=== PATIENT | male | born 1985 | race African-American/Black ===

== ENCOUNTER 2021-08-02 10:03 | Emergency (ER) | payer SELFPAY ==
--- OUTSIDE RECORDS SUMMARY | 2021-08-02 10:09 | XMS REPORT | Continuity of Care Document ---
:1985 Author Organization [facility] t Address [address] [place] [address] Care Team Providers Name Role Phone NGHIA Primary Care Physician Unavailable DR URIEL Attending Clinician Unavailable EMMETT Attending Clinician Unavailable Gill Davalos APN Attending Clinician Claudia Rosas MD Attending Clinician Claudia ROSAS Attending Clinician Unavailable NGHIA Attending Clinician Unavailable Gill Thomas Attending Clinician Unavailable BECKY GILLESPIE Attending Clinician Unavailable Jessika Attending Clinician Unavailable DR Dona BHAKTA Attending Clinician Unavailable Physician, Primary or Family Admitting Clinician Unavailharshad TREVINO DR Admitting Clinician Unavailable NGHIA Admitting Clinician Unavailable Jessika Admitting Clinician Unavailable DR Dona BHAKTA Admitting Clinician Unavailable Payers Payer Name Policy Type Policy Number Effective Date Expiration Date S ource BCBS OS [id number] 2018 POS/PPO/EPO 00:00:00 [place] [id number] 2018 HEALTHCARE PPO 00:00:00 26 C NONE [place] [id number] 2018 [place]PPO[place] 00:[place]:00 [place] [facility] Problems Condition Condition Condition Status Onset Resolution Last Treating Co mments Source Name Details Category Date Date Treatment Clinician Date Problem Condition [facility] Crohn's Problem Active [place] [facility] Ab[facility] Problem Active [place] [facility] Allergies, Adverse Reactions, Alerts Allergy Allergy Status Severity Reaction(s) Onset Inactive Treating Comm ents Source Name Type Date Date Clinician No Known NA Active 2020-0 [place] All[facility]ie 01-11 lle s 09:18: Memoria 47 l No Known NA Active 2020- [place] Allergie 01-05 lle s 05:55: Memoria 06 l No Known NA Active 2020- [place] Allergie 01-05 lle s 05:54: Memoria 57 l No Known NA Active 2020-0 [place] Allergie 01-05 lle s 03:14: Memoria 38 l No Known NA Active 2020-0 [place] Allergie 01-04 lle s 23:28: Memoria 54 l No Known DA Active U 2020-0 [facility] [place] 00:[facility] 00 [facility] No Known DA Active U 2020-0 [facility]- [place] 00:[facility]: [facility] 00 [facility] No Known DA Active U 2019-0 [facility]- [place] [facility] No Known DA Active U 2019-0 [facility] [place] [facility] No Known DA Active U 2018-0 [facility] [place] [facility] No Known DA Active U 2018-0 [facility] 9 [place] [facility] NO KNOWN Allergy Active [facility] ALLERGIE S NO KNOWN Drug Active Univers ALLERGIE Class [facility] [place] [facility] [place] Social History Social Habit Start Date Stop Date Quantity Comments Source Exposure to Not sure [facility] SARS-CoV-2 (event) Medica l Branch Sex Assigned At [birth year] Male [facility] 00:00:00 00:00:00 Health Smoking Status Start Date Stop Date Source Unknown if ever smoked [facility] Medications Ordered Filled Start Stop Current Ordering Indication Dosage Frequency Signature Comments Components Source Medication Medication Date Date Medication? Clinician (SIG) Name Name HYDROcodone 2020- No 1{tbl} 1 tablet, Univers -acetaminop 02-13 Oral, ity of hen (NORCO 08:15: 07:24 ONCE, 1 [place] as 5) 5-325 mg 00 :00 dose, On Medi digna tablet 1 Wed Branch tablet 02/13/21 at 0315, VIDAL iopamidol No [id number] 100mL 100 mL, Univers (ISOVUE 02-13 Intravenou ity o f 370-500 mL) 06:20: 06:20 s, ONCE, 1 [place] injection 00 :00 dose, On Medica l 100 mL Wed Branch 02/13/21 at 0130, Routine traMADoL 50 Yes [id number] 50mg Take 1 Univ ers mg tablet 02-13 tablet by ity o f 00:00: mouth [place] 00 every 6 Medical (six) Branch hours as needed for Pain (scale 4-6). Indication s: acute pain dicyclomine Yes [id number] 20mg Take 1 Univers 20 mg 02-13 tablet by ity of tablet 00:00: mouth 3 [place] 00 (three) Medical times Branch daily as needed for Abdominal pain. dicyclomine 2020- No 20mg 20 mg, Uni vers (BENTYL) 02-11 Oral, ity of tablet 20 07:15: 06:19 ONCE, 1 [place] mg 00 :00 dose, On Medical Mon Branch 02/11/21 at 0215, Routine HYDROcodone 2020- No 1{tbl} 1 tablet, Univers -acetaminop 02-11 Oral, ity of hen (NORCO 07:15: 06:19 ONCE, 1 [place] as 5) 5-325 mg 00 :00 dose, On Medi digna tablet 1 Mon Branch tablet 02/11/21 at 0215, VIDAL ondansetron 2020- No 4mg 4 mg, Slow Univers (ZOFRAN 02-11 IV Push, ity of (PF)) 03:15: 02:37 ONCE, 1 [place] injection 4 00 :00 dose, On Medi digna mg [place] Branch 02/10/21 at 2215, VIDAL FENTanyl PF 0 Yes 50ug 50 mcg, Uni vers (SUBLIMAZE - Slow IV ity of (PF)) 02:10: Push, [place] injection 55 Q30MIN Medical 50 mcg PRN, 3 Branch doses, Starting on 02/10/21 at 2110, Until Discontinu ed, VIDAL, Pain (scale 7-10) dicyclomine Yes [id number] 10mg Take 1 Univers 10 mg 9- 9108 capsule by ity of capsule 00:00: mouth 4 [place] 00 (four) Medical times Branch daily as needed for Abdominal pain. dicyclomine Yes [id number] 10mg Take 1 Univers 10 mg 9- 9108 capsule by ity of capsule 00:00: mouth 4 [place] 00 (four) Medical times Branch daily as needed for Abdominal pain. dicyclomine Yes [id number] 10mg Take 1 Univers 10 mg 9-27 9108 capsule by ity of capsule 00:00: mouth 4 [place] 00 (four) Medical times Branch daily as needed for Abdominal pain. Mesalamine Mesalamine 2019-0 Yes 1000 FOUR TIMES [place] (PENTASA (PENTASA 3-20 A DAY lle 500 MG CAP) 500 MG CAP) 11:08: (0900) Memoria 500 MG CAP 500 MG CAP 00 l Hospita l PREDNISONE PREDNISONE 0 Yes 40 EVERY DAY [place] (PREDNISONE (PREDNISONE 3-20 @ 0900 lle 10 MG TAB) 10 MG TAB) 11:08: M emoria 10 MG TAB 10 MG TAB 00 l Hospita l Vital Signs Vital Name Observation Time Observation Value Comments Source HEIGHT 2021-03-06 13:20:00 175.3 cm WEIGHT 2021-03-06 13:20:00 74.571 kg Systolic blood 2021-02-13 07:40:00 130 mm[Hg] Univer sity of pressure [facility] Diastolic blood 2021-02-13 07:40:00 89 mm[Hg] Unive rsity of pressure [place] [facility] Heart rate 2021-02-13 07:40:00 89 /min [facility] [place] [facility] Respiratory rate 2021-02-13 07:40:00 18 /min Univ ersity [facility] [place] [facility] Oxygen saturation in 2021-02-13 07:40:00 99 /min University of Arterial blood by [facility] digna Pulse oximetry Branch Body temperature 2021-02-13 03:40:00 36.61 Rain Univ ersity [facility] [place] [facility] Systolic blood 2021-02-11 11:14:00 128 mm[Hg] Univer sity of pressure [place] [facility] Diastolic blood 2021-02-11 11:14:00 74 mm[Hg] Unive rsity of pressure [place] [facility] Heart rate 2021-02-11 11:14:00 88 /min [facility] [place] [facility] Body temperature 2021-02-11 11:14:00 37.17 Rain Univ ersity [facility] [place] [facility] Respiratory rate 2021-02-11 11:14:00 17 /min Univ ers[facility] [place] [facility] Body weight 2021-02-11 11:14:00 61.236 kg [facility] [place] [facility] Oxygen saturation in 2021-02-11 11:14:00 97 /min University of Arterial blood by [facility] Pulse oximetry Branch Systolic blood 2021-02-11 06:00:00 106 mm[Hg] Univer sity of pressure [place] [facility] Diastolic blood 2021-02-11 06:00:00 64 mm[Hg] Unive rsity of pressure [place] [facility] Heart rate 2021-02-11 06:00:00 70 /min [facility] [place] [facility] Respiratory rate 2021-02-11 06:00:00 20 /min Univ ersity [facility] [place] [facility] Oxygen saturation in 2021-02-11 06:00:00 100 /min University of Arterial blood by [facility] digna Pulse oximetry Branch Body temperature 2021-02-11 01:37:00 36.78 Rain Univ ers[facility] [place] [facility] Body weight 2021-02-11 01:37:00 61.236 kg [facility] [place] [facility] HEIGHT 2021-01-24 19:23:00 175.3 cm WEIGHT 2021-01-24 19:23:00 74.844 kg HEIGHT 2021-01-05 02:25:00 177.8 cm WEIGHT 2021-01-05 02:25:00 76.658 kg HEIGHT 2020-09-10 13:54:00 180.3 cm WEIGHT 2020-09-10 13:54:00 72.576 kg HEIGHT 2020-08-16 08:49:00 177.8 cm WEIGHT 2020-08-16 08:49:00 72.485 kg HEIGHT 2020-03-01 09:20:00 177.8 cm WEIGHT 2020-03-01 09:20:00 73.392 kg HEIGHT 2019-12-14 00:00:00 175.3 cm WEIGHT 2019-12-14 00:00:00 74.844 kg HEIGHT 2019-12-14 00:00:00 175.3 cm WEIGHT 2019-12-14 00:00:00 74.844 kg BP Systolic 2019 12:02:00 129 mm[Hg] [facility] BP Diastolic 2019 12:02:00 83 mm[Hg] [facility] Temperature 2019 12:02:00 97.2 [degF] [facility] Respiratory rate 2019 12:02:00 20 /min [facility] Heart Rate 2019 12:02:00 75 /min [facility] Oxygen saturation by 2019 12:02:00 98 /min [place] Pulse oximetry [facility] Height 2019 06:10:00 70 [in_i] [facility] Weight 2019 06:10:00 78.018 kg [facility] BMI (Body Mass 2019 06:10:00 24.7 kg/m2 [facility] ille Index) [facility] Procedures Procedure Date / Time Performing Clinician Source Performed CT ABDOMEN PELVIS W 2021-02-13 06:23:00 Ed Davalos [facility] CONTRAST [facility] Branch COMP. METABOLIC PANEL 2021-02-13 06:05:00 Ed Davalos [facility] ([id number]) Medical Branch LIPASE 2021-02-13 05:23:00 Ed Davalos [facility] CBC WITH DIFF 2021-02-13 05:23:00 Ed Davalos [facility] URINALYSIS 2021-02-13 05:23:00 Ed Davalos [facility] CONSENT/REFUSAL FOR 2021-02-13 03:43:57 Doctor Unassigned, No Un iversity [facility] DIAGNOSIS AND TREATMENT Name [facility] CONSENT/REFUSAL FOR 2021-02-11 11:11:27 Doctor Unassigned, No [facility] [place] [facility] URINALYSIS 2021-02-11 04:21:00 Raffaele Rosas [facility] LIPASE 2021-02-11 02:36:00 Raffaele Rosas [facility] COMP. METABOLIC PANEL 2021-02-11 02:36:00 [id number] CBC WITH DIFF 2021-02-11 02:36:00 Raffaele Rosas [facility] CBCA W/PLT & AUTO 2019 00:00:00 [facility] COMPREHENSIVE METABOLIC 2019 00:00:00 [facility] MAGNESIUM 2019 00:00:00 [facility] [place] [facility] CBCA W/PLT & AUTO 2019-08-04 00:00:00 [facility] COMPREHENSIVE METABOLIC 2019-08-04 00:00:00 [facility] AMYLASE 2019-08-04 00:00:00 [facility] [place] [facility] LIPASE 2019-08-04 00:00:00 [facility] [place] [facility] MAGNESIUM 2019-08-04 00:00:00 [facility] [place] [facility] PROTIME 2019-08-04 00:00:00 [facility] [place] [facility] CT ABD & PELVIS W 2019-08-04 00:00:00 [facility] Plan of Care Planned Activity Planned Date Details Comments Source Instructions Crohn Disease [facility] Encounters Start End Encounter Admission Attending Care Care Encounter Source Date/Time Date/Time Type Type Clinicians Facility Department ID 2020-08-11 Inpatient [facility] STEPHANIE [id number] [facility] 11:45:00 [id number] Sandeep bernard [facility] 2019-05-19 [facility] [id number] [facility] 21:04:00 [facility] 2019-05-06 Inpatient Kami TREVINO [facility] [id number] [facility] 10:30:00 [facility] 2021-03-06 2021-03-06 Emergency ER WERO CHRISTINE [facility] Emergency [id number] [facility] 13:05:00 17:12:00 2021-02-12 2021-02-13 Emergency Davalos, TRAUMA [id number] Univers 22:43:00 02:45:00 Ed CENTER 350.1.13.10 [place] [id number] [address] 2021-02-12 2021-02-12 Emergency X [facility] ERT [id number] Univers 22:39:00 22:39:00 ity of [facility] 2021-02-11 2021-02-11 Emergency Morrical, TRAUMA [id number] Univers 06:16:00 07:23:00 Raffaele O CENTER 350.1.13.10 [place] [id number] [address] 2021-02-11 2021-02-11 Emergency X MORRICAL, [facility] ERT [id number] Univers 06:16:00 06:16:00 RAFFAELE ity [facility] 2021-02-10 2021-02-11 Emergency Morrical, TRAUMA [id number] Univers 20:39:00 01:36:00 Raffaele O CENTER 350.1.13.10 [place] [id number] [address] 2021-02-10 2021-02-10 Emergency X MORRICAL, [facility] ERT [id number] Univers 20:39:00 20:39:00 RAFFAELE ity [facility] 2021-01-24 2021-01-24 Emergency ER [facility] Emergency [id number] [facility] 18:59:00 18:59:00 2021-01-04 2021-01-05 Emergency 1 NGHIA, L[place] E[place] [id number] [place] 23:28:00 03:13:00 SAMANTHA 0820 lle Memoria l 2021-01-05 2021-01-05 Emergency ER [facility] Emergency [id number] [facility] 02:22:00 02:22:00 2020-09-10 2020-09-10 Emergency ER [facility] Emergency [id number] [facility] 13:53:00 13:53:00 2020-08-16 2020-08-16 Emergency ER [facility] Emergency [id number] [facility] 08:48:00 08:48:00 2020-04-05 2020-04-[address] [facility] [id number] 21:35:00 22:06:00 Emergency Chau 08 [facility]EMERGEN l Health SERVICES/[facility] 2020-04-05 2020-04-05 Emergency ER [facility] [id number] 21:35:00 21:35:00 Emmanuel -[id number] [facility] [facility] 2020-03-01 2020-03-01 Emergency ER [facility] Emergency [id number] [facility] 08:47:00 08:47:00 2019-12-14 2019-12-14 Emergency ER [facility] Emergency [id number] [facility] 09:08:00 09:08:00 2019-10-20 2019-10-20 Outpatient Martin_jess [facility] 100 [place] 03:27:00 03:27:00 ica [id number] lle [facility]oria [facility] Clinics 2019-10-20 2019-10-20 Outpatient Martin_jess [facility] [place] 03:27:00 03:27:00 ica [id number] lle [facility]oria [facility] Clinics 2019-10-20 2019-10-20 Outpatient Martin_jess [facility] [place] 03:27:00 03:27:[id number] [facility] 2019-08-04 2019 Discharged [place] [id number] [place] 13:07:00 13:25:[address] 2019-07-29 2019-07-29 Emergency [facility] [id number] [facility] 11:49:00 11:49:00 [id number] 2013-11-30 2013-11-30 Emergency E [facility] [id number] [place] 11:34:00 15:00:00 SEEMA [facility] Results Test Description Test Time Test Comments Results Result [facility] e Comments CT, ABDOMEN 2021-03-06 Unlisted 15:44:00 Reason for Exam - Click [facility] Yes and Enter - MEDICAL CENTERName: Reason VARGHESE BETTYIVETLILLI Below->Juan M BHAT : this procedure 1985 Sex: require oral M contrast?->No FINAL REPORT CT, ABDOMEN \\T\\ PELVIS, WITH IV CONTRAST HISTORY: Abdominal pain, acute, nonlocalized COMPARISON: 01/24/2021 CT abdomen pelvis TECHNIQUE: CT of the abdomen and pelvis WITH intravenous contrast and WITHOUT oral contrast. The examination was performed according to the departmental dose-optimization program, which includes automated exposure control, adjustment of the mA and/or kV according to patient size and/or use of iterative reconstruction technique. FINDINGS: Moderately motion degraded exam. Lower thorax: Unremarkable.Liver: Focal fat deposition along falciform ligament, less conspicuous than 01/24/2021.Gallbladder and bile ducts: Unremarkable.Spleen: Unremarkable.Pancreas: Unremarkable.Adrenals: UnremarkableKidneys and ureters: Unremarkable.Bowel: Moderate wall thickening of the terminal 14 cm of the ileum. Mild wall thickening versus underdistention of the descending colon and sigmoid colon. No evidence for bowel obstruction. Normal appendix.Bladder: Unremarkable.Reproductiv e organs: Unremarkable.Lymph nodes: Unremarkable.Peritoneum: No free air, free fluid, or fluid collections.Vessels: Unremarkable.Abdominal wall: Unremarkable.Bones: Unremarkable. IMPRESSION: 1.Infectious/inflammator y terminal ileitis, correlate for any history of inflammatory bowel disease, similar to slightly improved in appearance from 01/24/2021. 2.Questionable mild wall thickening versus underdistention of the descending and sigmoid colon as well. Signed: Skyla Fonseca Verified Date/Time: 03/06/2021 15:44:29 Reading Location: [facility] [id number] Consult Reading Room . METABOLIC PANEL ([id number]) 2021-02-13 06:33:13 Test Item Value Reference Range Interpretation Comme nts NA (test code = 7944532049) 141 mmol/L 135-145 K (test code = 0855451139) 4.0 mmol/L 3.5-5.0 CL (test code = 1639931429) 106 mmol/L 98-108 CO2 TOTAL (test code = 4895580230) 26 mmol/L 23-31 AGAP (test code = 1777119146) 2-16 BUN (test code = 6755980455) 17 mg/dL 7-23 GLUCOSE (test code = 6409851327) 91 mg/dL 70-110 CREATININE (test code = 0.90 mg/dL 0.60-1.25 5469086515) TOTAL BILI (test code = 0.7 mg/dL 0.1-1.2 3590421771) CALCIUM (test code = 0393868232) 9.4 mg/dL 8.6-10.6 T PROTEIN (test code = 8753153519) 8.1 g/dL 6.3-8.2 ALBUMIN (test code = 7296790235) 4.5 g/dL 3.5-5.0 ALK PHOS (test code = 6413223009) 77 U/L 34-122 ALTv (test code = 1742-6) 31 U/L 5-50 AST(SGOT) (test code = 6481681539) 92 U/L 13-40 H eGFR (test code = 7556699512) mL/min/1.73m2 COLEMAN (test code = COLEMAN) Association of Glomerular Filtration Rate (GFR) and Staging of Kidney Disease* + +-------- + ------+| GFR (mL/min/1.73 m2) ?| With Kidney Damage ?| ?Without Kidney Damage+ +-- + +| ?>90 ?| ?Stage one ?| ? Normal ?+ +------- + -------+| ?60-89 ?| ?Stage two ?| ? Decreased GFR ? + +-------- + ------+| ?30-59 ?| ?Stage three ?| ? Stage three ? + +-------- + ------+| ?15-29 ?| ?Stage four ? | ? Stage four ?+ +------- + -------+| ?<15 (or dialysis) ? ?| ?Stage five ? | ? Stage five ?+ +------- + -------+ *Each stage assumes the associated GFR level has been in effect for at least three months. ?Stages 1 to 5, with or without kidney disease, indicate chronic kidney disease. Notes: Determination of stages one and two (with eGFR >59mL/min/1.73 m2) requires estimation of kidney damage for at least three months as defined by structural or functional abnormalities of the kidney, manifested by either:Pathological abnormalities or Markers of kidney damage (including abnormalities in the composition of the blood or urine or abnormalities in imaging tests). Lab Interpretation (test code = Abnormal 44643-1) [facility] 05:50:29 Test Item Value Reference Range Interpretation Comments LIPASE (test code = 5694591045) 38 U/L 0-220 Lab Interpretation (test code = Normal 93580-7) [facility] WITH [id number] 05:35:51 Test Item Value Reference Range Interpretation Comments WBC (test code = See_Comment H [Automated 2490-2) message] The system which generated this result transmit johnathan reference range : 4.20 - 10.70 10*3/?L. The reference range was not used to interpret this result as normal/abnormal . RBC (test code = See_Comment [Automated 619-8) message] The system which generated this result transmit johnathan reference range : 4.26 - 5.52 10*6/?L. The reference range was not used to interpret this result as normal/abnormal . HGB (test code = 13.6 g/dL 12.2-16.4 718-7) HCT (test code = 39.8 % 38.4-49.3 4544-3) MCV (test code = 91.3 fL 81.7-95.6 787-2) MCH (test code = 31.2 pg 26.1-32.7 785-6) MCHC (test code = 34.2 g/dL 31.2-35.0 786-4) RDW-SD (test code = 50.2 fL 38.5-51.6 07022-4) RDW-CV (test code = 15.2 % 12.1-15.4 788-0) PLT (test code = See_Comment [Automated 777-3) message] The system which generated this result transmit johnathan reference range : 150 - 328 10*3/ ?L. The reference range was not u sed to interpret th is result as normal/abnormal . MPV (test code = 9.2 fL 9.8-13.0 L 44368-6) NRBC/100 WBC (test See_Comment [Automat ed code = 6837274474) message] The system which generated this result transmit johnathan reference range : 0.0 - 10.0 /100 WBCs. The reference range was not used to interpret this result as normal/abnormal . NRBC x10^3 (test code <0.01 See_Comment [Auto mated = 8252404649) message] The system which generated this result transmit johnathan reference range : 10*3/?L. The reference range was not used to interpret this result as normal/abnormal . GRAN MAT (NEUT) % 82.1 % (test code = 770-8) IMM GRAN % (test code 0.40 % = 3272357870) LYMPH % (test code = 8.8 % 736-9) MONO % (test code = 8.0 % 5905-5) EOS % (test code = 0.5 % 713-8) BASO % (test code = 0.2 % 706-2) GRAN MAT x10^3(ANC) 10.39 10*3/uL 1.99-6.95 H (test code = 8539616585) IMM GRAN x10^3 (test 0.05 10*3/uL 0.00-0.06 code = 9882579293) LYMPH x10^3 (test code 1.11 10*3/uL 1.09-3.23 = 731-0) MONO x10^3 (test code 1.01 10*3/uL 0.36-1.02 = 742-7) EOS x10^3 (test code = 0.06 10*3/uL 0.06-0.53 711-2) BASO x10^3 (test code 0.03 10*3/uL 0.01-0.09 = 704-7) Lab Interpretation Abnormal (test code = 40240-7) [facility]. METABOLIC PANEL (05985)2021-02-11 03:01:12 Test Item Value Reference Range Interpretation Comments NA (test code = 137 mmol/L 135-145 7810652681) K (test code = 4.5 mmol/L 3.5-5.0 Slight 0061185742) hemolysis CL (test code = 104 mmol/L 98-108 0096340417) CO2 TOTAL (test code 20 mmol/L 23-31 L = 9518166278) AGAP (test code = 2-16 7499319943) BUN (test code = 16 mg/dL 7-23 Slight 2945517416) hemolysis GLUCOSE (test code = 86 mg/dL 70-110 7083084868) CREATININE (test code 0.95 mg/dL 0.60-1.25 = 5684049847) TOTAL BILI (test code 0.6 mg/dL 0.1-1.1 = 3961369120) CALCIUM (test code = 9.4 mg/dL 8.6-10.6 3518098422) T PROTEIN (test code 7.4 g/dL 6.3-8.2 = 6472679997) ALBUMIN (test code = 4.3 g/dL 3.5-5.0 5857518836) ALK PHOS (test code = 67 U/L 34-122 Slight 8429021381) hemolysis ALTv (test code = 20 U/L 5-50 1742-6) AST(SGOT) (test code 33 U/L 13-40 Slight = 9071498537) hemolysis eGFR (test code = mL/min/1.73m2 1104469939) COLEMAN (test code = COLEMAN) Association of Glomerular Filtration Rate (GFR) and Staging of Kidney Disease* + -----+ --------+ +| GFR (mL/min/1.73 m2) ?| With Kidney Damage ?| ?Without Kidney Damage+ +------- +---- --+| ?>90 ?| ?Stage one ?| ? Normal ?+ ------+ ---------+--------- +| ?60-89 ?| ?Stage two ?| ? Decreased GFR ? + -----+ --------+ +| ?30-59 ?| ?Stage three ?| ? Stage three ? + -----+ --------+ +| ?15-29 ?| ?Stage four ? | ? Stage four ?+ ------+ ---------+--------- +| ?<15 (or dialysis) ? ?| ?Stage five ? | ? Stage five ?+ ------+ ---------+--------- + *Each stage assumes the associated GFR level has been in effect for at least three months. ?Stages 1 to 5, with or without kidney disease, indicate chronic kidney disease. Notes: Determination of stages one and two (with eGFR >59mL/min/1.73 m2) requires estimation of kidney damage for at least three months as defined by structural or functional abnormalities of the kidney, manifested by either:Pathological abnormalities or Markers of kidney damage (including abnormalities in the composition of the blood or urine or abnormalities in imaging tests). Lab Interpretation Abnormal (test code = 14473-7) [facility] 03:01:12 Test Item Value Reference Range Interpretation Comments LIPASE (test code = 6821965086) 59 U/L 0-220 Lab Interpretation (test code = Normal 47506-5) [facility] WITH [id number] 02:52:10 Test Item Value Reference Range Interpretation Comments WBC (test code = See_Comment H [Automated 3990-2) message] The sy stem which generated this result transmitted reference range : 4.20 - 10.70 10*3/?L. The reference range was not used to interpret this result as normal/abnormal . RBC (test code = See_Comment L [Automated 409-8) message] The sy stem which generated this result transmitted reference range : 4.26 - 5.52 10*6/?L. The reference range was not used to interpret this result as normal/abnormal . HGB (test code = 12.9 g/dL 12.2-16.4 718-7) HCT (test code = 37.6 % 38.4-49.3 L 4544-3) MCV (test code = 90.2 fL 81.7-95.6 787-2) MCH (test code = 30.9 pg 26.1-32.7 785-6) MCHC (test code = 34.3 g/dL 31.2-35.0 786-4) RDW-SD (test code = 49.4 fL 38.5-51.6 22976-4) RDW-CV (test code = 15.1 % 12.1-15.4 788-0) PLT (test code = See_Comment [Automated 777-3) message] The sy stem which generated this result transmitted reference range : 150 - 328 10*3/ ?L. The reference r oren was not used to interpret this result as normal/abnormal . MPV (test code = 9.2 fL 9.8-13.0 L 00002-5) NRBC/100 WBC (test See_Comment [Automat ed code = 0950350912) message] The system which generated this result transmitted reference range : 0.0 - 10.0 /100 WBCs. The refer ence range was not u sed to interpret th is result as normal/abnormal . NRBC x10^3 (test code <0.01 See_Comment [Auto mated = 4029300095) message] The s ystem which generated this result transmitted reference range : 10*3/?L. The reference range was not used to interpret this result as normal/abnormal . GRAN MAT (NEUT) % 81.0 % (test code = 770-8) IMM GRAN % (test code 0.30 % = 5808161049) LYMPH % (test code = 10.3 % 736-9) MONO % (test code = 7.8 % 5905-5) EOS % (test code = 0.2 % 713-8) BASO % (test code = 0.4 % 706-2) GRAN MAT x10^3(ANC) 8.85 10*3/uL 1.99-6.95 H (test code = 9168960942) IMM GRAN x10^3 (test 0.03 10*3/uL 0.00-0.06 code = 9176314955) LYMPH x10^3 (test code 1.12 10*3/uL 1.09-3.23 = 731-0) MONO x10^3 (test code 0.85 10*3/uL 0.36-1.02 = 742-7) EOS x10^3 (test code = <0.03 0.06-0.53 L 711-2) BASO x10^3 (test code 0.04 10*3/uL 0.01-0.09 = 704-7) Lab Interpretation Abnormal (test code = 81045-6) [facility], [id number] 21:25:00Unlisted Reason for Exam - Click Yes and Enter Reason Below->NoWill this procedure require oral contrast?->No [facility] 1985 Sex: MFINAL REPORT TECHNIQUE: CT of the abdomen and pelvis WITH intravenous contrast and WITHOUT oral contrast. Dose modulation, iterative reconstruction, and/or weight-based adjustment of the mA/kV was utilized to reduce the radiation dose to as low as reasonably achievable.IV CONTRAST: CT Epic ORAL CONTRAST: None RADIATION DOSE: Total DLP: 366 mGy*cm COMPLICATIONS: None INDICATION: Inflammatory bowel disease. COMPARISON: None. FINDINGS: LOWER THORAX: Unremarkable. HEPATOBILIARY: No focal hepatic lesions. Focal fatty infiltration along the falciform ligament is noted. Gallbladder is unremarkable. No biliary ductal dilatation.SPLEEN: No splenomegaly.PANCREAS: No focal masses or ductal dilatation. ADRENALS: No adrenal nodules.KIDNEYS/URETERS: Symmetric enhancement without hydronephrosis, suspicious mass or surrounding inflammatory changes. Ureters are not dilated..PELVIC ORGANS/BLADDER: Unremarkable. PERITONEUM/RETROPERITONEUM: No free air or fluid.LYMPH NODES: Prominent right lower quadrant mesenteric lymph nodes are noted.VESSELS: Unremarkable. GI TRACT: Limited due to lack of oral contrast. Diffuse wall thickening and hyperenhancement of the terminal ileum is noted extending to the proximal colon with mild narrowing. There is mild proximal small bowel loop dilatation without evidence for definite obstruction. No extraluminal foci of air. Normal appendix is noted. BONES AND SOFT TISSUES: No acute osseous abnormality. No suspicious destructive or sclerotic process.. Superficial soft tissues are unremarkable. IMPRESSION:Diffuse wall thickening and hyperenhancement of the terminal ileum with mild narrowing extending to the level of the ileocecal junction. There is mild proximal small bowel dilatation without overt evidence of obstruction. No drainable fluid collection noted. No extraluminal foci of air noted.Findings are concerning for inflammatory versus infectious ileitis. Inflammatory bowel disease/Crohn's disease is a consideration. Signed: Rangel Medley MDReport Verified Date/Time: 01/24/2021 21:25:02Reading Location: [facility] Women CT, BRAIN, WITHOUT [id number] 09:17:00 Unlisted Reason for Exam - Click Yes and Enter Reason Below->No [facility] SURINDERLILLI BHAT : 1985 Sex: MFINAL REPORT CT Head without contrast CLINICAL HISTORY: Head trauma, minor, normal mental status (Age 19-64y) TECHNIQUE: Contiguous axial images through the head without contrast. This exam was performed according to the departmental dose optimization program which includes automated exposure control, adjustment of the mA and/or kV according to the patient size, and/or use of an iterative reconstruction technique. COMPARISON: None FINDINGS: There is no evidence of skull fracture or intracranial hemorrhage. There is mild generalized parenchymal volume loss without hydrocephalus, midline shift, or apparent mass effect. There are no extra-axial fluid collections.The paranasal sinuses are well-aerated. IMPRESSION: No evidence of skull fracture or intracranial hemorrhage. Signed: Jonathan Benavides MDReport Verified Date/Time: 08/16/2020 09:17:38 Reading Location: [facility] C013V Neuro Reading Room - XR ABDOMEN 1 [id number] 14:20:00 [facility] : 1985 Sex: M FAX: Mariluz Resendez MD [phone] [place]: E St: DEP Patient Name: RYNE KWONG Unit No: [id number] EXAMS: CPT CODE: [id number] XR ABDOMEN 1 V 28674 EXAM: Abdominal x-ray Dictation location: C3 INDICATION: Lower abdominal pain, possible Crohn's flareup COMPARISON: None DISCUSSION: Frontal views of the abdomen and pelvis are submitted. The bowel gas pattern is nonobstructive. No gross evidence of intra-abdominal free air is seen. No acute bony abnormalities are identified. IMPRESSION: Unremarkable abdominal radiographs. at 1420 Reported and signed by: Tee Nieto M.D. CC: Mariluz Rodriguez Dictated Date/Time: 08/11/2020 (5330)Technologist: Linda Loco Transcribed Date/Time: 08/11/2020 (142) By: [email or web address] Orig Print D/T:S: 08/11/2020 (4726) [facility] NAME: VAR[address] PHYS: Mariluz Norton MD, [place] [address] : 1985 AGE: 35 SEX: M LOC: KARLEY PHONE #: [phone] EXAM DATE: 08/11/2020 STATUS: [facility] ER FAX #: [phone] RAD NO: DC Dt: PAGE 1 Signed ReportCOMPREHENSIVE METABOLIC [id number] 13:39:00 Test Item Value Reference Range Interpretation Comments SODIUM (test code = 137.0 mmol/L 133-144 N NA) POTASSIUM (test code 3.9 mmol/L 3.5-5.1 N = K) CHLORIDE (test code 108 mmol/L 95-105 H = CL) CARBON DIOXIDE (test 24 mmol/L 21-32 N code = CO2) ANION GAP (test code 5.0 GAP calc 4.0-15.0 N = GAP) GLUCOSE (test code = 88 MG/DL 70-110 N GLU) BLOOD UREA NITROGEN 14 MG/DL 7-18 N (test code = BUN) GLOMERULAR 137 estGFR >60 The estimated FILTRATION RATE glomerular (test code = GFR) filtration rate is computed usingpatient ra ce, age, sex, and s juan creatinine. If any of theneeded da ta elements are mi ssing the Laboratory can notcompute an estimation of t he glomerular filtration rate .The GFR value units = ml/min/1.73 met er squared. EstimatedGFR va lues above 60 should be interpreted as >60, not anexact number.--- DRUG DOSAGE ALERT -- - Drug dosage adjustments uti lize different calculationpara meter s. CREATININE (test 0.78 MG/DL 0.55-1.30 N Results may be code = CREAT) depressed if p atient is takingN-Acetylc ystei ne (NAC) and Metamizole (Dipyrone). TOTAL PROTEIN (test 7.6 G/DL 6.4-8.2 N code = PROT) ALBUMIN (test code = 3.4 G/DL 3.4-5.0 N ALB) ALBUMIN/GLOBULIN 0.8 RATIO 1.2-2.2 L RATIO (test code = A/G) CALCIUM (test code = 8.6 MG/DL 8.5-10.1 N CA) BILIRUBIN TOTAL 0.40 MG/DL 0.00-1.00 N (test code = BILT) BILIRUBIN DIRECT 0.14 MG/DL 0.00-0.30 N (test code = BILD) BILIRUBIN INDIRECT 0.26 MG/DL 0.2-1.3 N (test code = BILIND) SGOT/AST (test code 19 Unit/L 15-37 N = AST) SGPT/ALT (test code 19 Unit/L 12-78 N = ALT) ALKALINE PHOSPHATASE 67 Unit/L 45-117 N TOTAL (test code = ALKP) INDEX HEMOLYSIS 2 TRACE 10-25 See_Comment [Automated message] (test code = MG Index/DL The system raj h HEMINDEX) generated this result transmit johnathan reference range : 1 NORMAL. The reference range was not used to interpret this result as normal/abnormal . INDEX ICTERIC (test 1 NORMAL <2 MG See_Comment [Auto mated message] code = ICTINDEX) Index/DL The system which generated this result transmit johnathan reference range : 1 NORMAL. The reference range was not used to interpret this result as normal/abnormal . INDEX LIPEMIA (test 1 NORMAL <50 See_Comment [Automa johnathan message] code = LIPINDEX) MG Index/DL The system which generated this result transmit johnathan reference range : 1 NORMAL. The reference range was not used to interpret this result as normal/abnormal . COMPREHENSIVE METABOLIC [id number] 13:36:00 Test Item Value Reference Range Interpretation Comments SODIUM (test code = 137.0 mmol/L 133-144 N NA) POTASSIUM (test code 3.9 mmol/L 3.5-5.1 N = K) CHLORIDE (test code 108 mmol/L 95-105 H = CL) CARBON DIOXIDE (test 24 mmol/L 21-32 N code = CO2) ANION GAP (test code 5.0 GAP calc 4.0-15.0 N = GAP) GLUCOSE (test code = 88 MG/DL 70-110 N GLU) BLOOD UREA NITROGEN 14 MG/DL 7-18 N (test code = BUN) GLOMERULAR 137 estGFR >60 The estimated FILTRATION RATE glomerular (test code = GFR) filtration rate is computed usingpatient ra ce, age, sex, and s juan creatinine. If any of theneeded da ta elements are mi ssing the Laboratory can notcompute an estimation of t he glomerular filtration rate .The GFR value units = ml/min/1.73 met er squared. EstimatedGFR va lues above 60 should be interpreted as >60, not anexact number.--- DRUG DOSAGE ALERT -- - Drug dosage adjustments uti lize different calculationpara meter s. CREATININE (test 0.78 MG/DL 0.55-1.30 N Results may be code = CREAT) depressed if p atient is takingN-Acetylc ystei ne (NAC) and Metamizole (Dipyrone). TOTAL PROTEIN (test G/DL 6.4-8.2 code = PROT) ALBUMIN (test code = 3.4 G/DL 3.4-5.0 N ALB) ALBUMIN/GLOBULIN RATIO 1.2-2.2 RATIO (test code = A/G) CALCIUM (test code = 8.6 MG/DL 8.5-10.1 N CA) BILIRUBIN TOTAL MG/DL 0.00-1.00 (test code = BILT) BILIRUBIN DIRECT 0.14 MG/DL 0.00-0.30 N (test code = BILD) BILIRUBIN INDIRECT MG/DL 0.2-1.3 (test code = BILIND) SGOT/AST (test code 19 Unit/L 15-37 N = AST) SGPT/ALT (test code 19 Unit/L 12-78 N = ALT) ALKALINE PHOSPHATASE Unit/L 45-117 TOTAL (test code = ALKP) INDEX HEMOLYSIS 2 TRACE 10-25 See_Comment [Automated message] (test code = MG Index/DL The system [employer] HEMINDEX) generated this result transmit johnathan reference range : 1 NORMAL. The reference range was not used to interpret this result as normal/abnormal . INDEX ICTERIC (test 1 NORMAL <2 MG See_Comment [Auto mated message] code = ICTINDEX) Index/DL The system which generated this result transmit johnathan reference range : 1 NORMAL. The reference range was not used to interpret this result as normal/abnormal . INDEX LIPEMIA (test 1 NORMAL <50 See_Comment [Automa johnathan message] code = LIPINDEX) MG Index/DL The system which generated this result transmit johnathan reference range : 1 NORMAL. The reference range was not used to interpret this result as normal/abnormal . CBC W/AUTO [id number] 13:21:00 Test Item Value Reference Range Interpretation Comments WHITE BLOOD CELL (test code = 5.5 K/mm3 4.1-12.1 N WBC) RED BLOOD CELL (test code = RBC) 4.34 M/mm3 3.8-5.5 N HEMOGLOBIN (test code = HGB) 12.9 G/DL 10.6-15.8 N HEMATOCRIT (test code = HCT) 40.8 % 31.8-47.4 N MEAN CELL VOLUME (test code = 94.0 fL 80.1-101.1 N MCV) MEAN CELL HGB (test code = MCH) 29.7 pg 25.3-35.3 N MEAN CELL HGB CONCETRATION (test 31.6 G/DL 32.7-35.1 L code = MCHC) RED CELL DISTRIBUTION WIDTH 14.2 % 12.2-16.4 N (test code = RDW) RED CELL DISTRIBUTION WIDTH 49.5 fL 35.1-43.9 H (test code = RDW-SD) PLATELET COUNT (test code = PLT) 227 K/mm3 155-337 N MEAN PLATELET VOLUME (test code 9.9 fL 7.6-10.4 N = MPV) GRANULOCYTE % (test code = GR%) 61.3 % 37.8-82.6 N IMMATURE GRANULOCYTE % (test 0.4 % 0.0-2.0 N code = IG%) LYMPHOCYTE % (test code = LY%) 28.9 % 14.1-45.4 N MONOCYTE % (test code = MO%) 9.0 % 2.5-11.7 N EOSINOPHIL % (test code = EO%) 0.2 % 0.0-6.2 N BASOPHIL % (test code = BA%) 0.2 % 0.0-2.6 N NUCLEATED RBC % (test code = 0.0 /100WBC% 0.0-1.0 N NRBC%) GRANULOCYTE # (test code = GR#) 3.39 k/mm3 2.0-13.7 N IMMATURE GRANULOCYTE # (test 0.02 K/mm3 0.00-0.03 N code = IG#) LYMPHOCYTE # (test code = LY#) 1.60 K/mm3 0.6-3.8 N MONOCYTE # (test code = MO#) 0.50 K/mm3 0.11-0.59 N EOSINOPHIL # (test code = EO#) 0.01 K/mm3 0.0-0.4 N BASOPHIL # (test code = BA#) 0.01 K/mm3 0.0-0.1 N NUCLEATED RBC # (test code = 0.00 K/mm3 0.00-0.05 N NRBC#) - CT HEAD/BRAIN W/O [id number] 12:35:00 [facility] : 1985 Sex: M Patient Name: RYNE KWONG Unit No: [id number] EXAMS: CPT CODE: [id number] CT HEAD/BRAIN W/O CONT [id number] EXAM: - CT HEAD/BRAIN W/O CONT Location code:C3 HISTORY: 35 years -old Male with Fell on his head TECHNIQUE: Axial CT images from the skull base to the vertex without intravenous contrast. Coronal and sagittal reformatted images were created from the data set. This exam was performed according to our departmental dose- optimization program, which includes automated exposure control, adjustment of the mA and/or kV according to patient size and/or use of iterative reconstruction technique. COMPARISON: None FINDINGS: Intracranial: No abnormal brainparenchymal density. No evidence of acute infarction, intracranial hemorrhage, mass or mass ef fect, or abnormal extra-axial fluid collection. No evidence of hydrocephalus. Bones: There is no evidence of acute displaced calvarial fracture. Sinuses: The visualized portions of the paranasal sinuses demonstrate no significant opacification.The mastoid air cells are clear. Orbits/Soft Tissues: The visualized orbits show no significant abnormalities. There is a scalp hematoma overlying the left parietal vertex. IMPRESSION: 1. No CT evidence of acute intracranial abnormality. 2. Left scalp hematoma. at 1235 Reported and signed by: José Antonio Wright M.D. CC: Marliuz Fenton MD Dictated Date/Time: 08/11/2020 (1233) Technologist: Alli Mosqueda CTDI: 54.04 DLP: 875.47 Trnscrpt: 08/11/2020 (1235) [email or web address] [facility] NAME: VAR[address] PHYS: Mariluz Norton MD [place], [place] [address] : 1985 AGE: 35 SEX: M LOC: B.ERS PHONE #: [phone] EXAM DATE: 08/11/2020 STATUS: PRE ER FAX #: [phone] RAD #: D/C DTPAGE 1 Signed Report Patient Name: RYNE KWONG Unit No: [id number] EXAMS:CPT CODE: [id number] CT HEAD/BRAIN W/O CONT [id number] <Continued> Orig Print D/T: S: 08/11/2020 (9232) [facility] Sandeep NAME: VARGHESE,[address] PHYS: Mariluz [place] [address] : 1985 AGE: 35 SEX: M LOC: KARLEY PHONE #: [phone] EXAM DATE: 08/11/2020 STATUS: PRE ER FAX #: RAD #: D/C DT PAGE 2 Signed Report- CT C-SPINE W/O [id number] 12:33:00 [facility] RY[facility] : 1985 Sex: M Patient Name: RYNE KWONG Unit No: [id number] EXAMS: CPT CODE: [id number] CT C-SPINE W/O CONT [id number] EXAM: - CT C-SPINE W/O CONT Location code:C3 HISTORY: 35 years-old Male with fell on left parietal area, no deformity TECHNIQUE: Contiguous axial/helical images are acquired with a small focused field of view centered over the spine from the skull base through the cervical spine. Sagittal and coronal reconstruction images are generated from the axial data. No contrast is administered. This exam was performed according to our departmental dose-optimization program, which includesautomated exposure control, adjustment of the mA and/or kV according to patient size and/or use of iterative reconstruction technique. COMPARISON: None FINDINGS: VERTEBRAL BODIES: No evidence of acute displaced fracture involving the cervical spine. ALIGNMENT: The cervical spine alignment is within normal limits. OTHER: No evidence of an apical pneumothorax.. IMPRESSION: No CT evidence of acute displaced fracture involving the cervical spine. at 1233 Reported and signed by: José Antonio Wright M.D.CC: Mariluz Fenton MD Dictated Date/Time: 08/11/2020 (1233) Technologist: Alli Mosqueda CTDI: 10.15 DLP: 206.58 Trnscrpt: 08/11/2020 (1233) [email or web address] [facility] Sandeep NAME: VAR[address] PHYS: [place]iluz [place] [address] D OB: 1985 AGE: 35 SEX: M LOC: B.ERS PHONE #: [phone] EXAM DATE: 08/11/2020 STATUS: PRE ER FAX #: [phone] RAD #: D/C DT PAGE 1 Signed Report Patient Name: RYNE KWONG Unit No: [id number] EXAMS: CPT CODE: [id number] CT C-SPINE W/O CONT 33082 <Continued> Orig Print D/T: S: 08/11/2020(1237) [facility] [place] NAME: [facility] PHYS: Mariluz [place] [address] : 1985 AGE: 35 SEX: M LOC: B.ERS PHONE #: [phone] EXAM DATE: 08/11/2020 STATUS: PRE ER FAX #: [phone] RAD #: D/C DT PAGE 2 Signed ReportRAD, HAND, 3 VIEWS, [id number] 10:26:00Reason for exam:->HAND PAINReason for exam:->ABDOMINAL PAINShould this be performed at the bedside?->NoFINAL REPORT CLINICAL HISTORY: HAND PAINABDOMINAL PAIN TECHNIQUE: 3 views of the left hand COMPARISON: None IMPRESSION: The bones of the hand are intact without evidence of fracture or dislocation. Signed: Jonathan Benavides MDReport Verified Date/Time: 12/14/2019 10:26:03 Reading Location: [facility] Radiology Reading Room RAD, ABDOMEN/KUB 1 VIEW [id number] 10:26:00Reason for exam:->abdominal pain, diarrhearightReason for exam:->HAND PAINReason for exam:->ABDOMINAL PAINShould this be performed at the bedside?->NoFINAL REPORT CLINICAL HISTORY: abdominal pain, diarrheaHAND PAINABDOMINAL PAIN TECHNIQUE: Supine abdomen COMPARISON: None IMPRESSION: The bowel gas pattern is nonspecific. Free air and air-fluid levels are not definitively seen, but also cannot be excluded on the supine view. Signed: Jonathan Benavides Verified Date/Time: 12/14/2019 10:26:34 Reading Location: [facility] Reading Room , SHOULDER, COMPLETE (MIN 2 VIEWS), [id number] 10:21:00Reason for exam:- >right shoulder painrightReason for exam:->HAND PAINReason for exam:->ABDOMINAL PAINShould this be performed at the bedside?->NoFINAL REPORT CLINICAL HISTORY: right shoulder painHAND PAINABDOMINAL PAIN TECHNIQUE: 3 views of the right shoulder COMPARISON: None IMPRESSION: The shoulder is intact without evidence of fracture or dislocation. Signed: Jonathan Benavides Verified Date/Time: 12/14/2019 10:21:15 Reading Location: [facility] Radiology Reading Room COMPREHENSIVE METABOLIC PANEL 2019-12-14 09:46:00 Test Item Value Reference Range Interpretation Comments TOTAL PROTEIN 6.8 gm/dL 6.0-8.5 (BEAKER) (test code = 770) ALBUMIN (BEAKER) 3.6 g/dL 3.5-5.0 (test code = 1145) ALKALINE PHOSPHATASE 59 U/L 30-115 (BEAKER) (test code = 346) BILIRUBIN TOTAL 0.3 mg/dL 0.1-1.2 (BEAKER) (test code = 377) SODIUM (BEAKER) (test 141 meq/L 135-148 code = 381) POTASSIUM (BEAKER) 3.2 meq/L 3.6-5.5 L (test code = 379) CHLORIDE (BEAKER) 106 meq/L 98-106 (test code = 382) CO2 (BEAKER) (test 23 meq/L 20-29 code = 355) BLOOD UREA NITROGEN 11 mg/dL 10-26 (BEAKER) (test code = 354) CREATININE (BEAKER) 1.09 mg/dL 0.50-1.20 (test code = 358) GLUCOSE RANDOM 119 mg/dL 70-110 H (BEAKER) (test code = 652) CALCIUM (BEAKER) 8.8 mg/dL 8.5-10.5 (test code = 697) AST (SGOT) (BEAKER) 17 U/L 5-40 (test code = 353) ALT (SGPT) (BEAKER) 11 U/L 5-50 (test code = 347) EGFR (BEAKER) (test 94 mL/min/1.73 ESTIMA JOHNATHAN GFR IS code = 1092) sq m NOT ACCURATE CREATININE CLEARANCE IN PREDICTING GLOMERULAR FILTRATION RATE . ESTIMATED GFR I S NOT APPLICABLE FOR DIALYSIS PATIEN TS. Parachute Supervisor ID - [id number] 09:45:00 Test Item Value Reference Range Interpretation Comments LIPASE (BEAKER) (test code = 749) 10 U/L 6-51 Parachute Supervisor ID - [id number] W/PLT COUNT & AUTO [id number] 09:32:00 Test Item Value Reference Range Interpretation Comments WHITE BLOOD CELL COUNT (BEAKER) 8.8 K/ L 4.0-10.0 (test code = 775) RED BLOOD CELL COUNT (BEAKER) 4.22 M/ L 4.20-5.80 (test code = 761) HEMOGLOBIN (BEAKER) (test code = 12.5 GM/DL 13.0-16.8 L 410) HEMATOCRIT (BEAKER) (test code = 37.6 % 36.0-50.0 411) MEAN CORPUSCULAR VOLUME (BEAKER) 89.1 fL 82.0-99.0 (test code = 753) MEAN CORPUSCULAR HEMOGLOBIN 29.6 pg 27.0-33.0 (BEAKER) (test code = 751) MEAN CORPUSCULAR HEMOGLOBIN CONC 33.2 GM/DL 32.0-36.0 (BEAKER) (test code = 752) RED CELL DISTRIBUTION WIDTH 15.9 % 12.0-15.0 H (BEAKER) (test code = 412) PLATELET COUNT (BEAKER) (test 325 K/CU MM 150-430 code = 756) MEAN PLATELET VOLUME (BEAKER) 9.5 fL 6.0-11.5 (test code = 754) NUCLEATED RED BLOOD CELLS 0 /100 WBC 0-0 (BEAKER) (test code = 413) NEUTROPHILS RELATIVE PERCENT 65 % (BEAKER) (test code = 429) LYMPHOCYTES RELATIVE PERCENT 26 % (BEAKER) (test code = 430) MONOCYTES RELATIVE PERCENT 8 % (BEAKER) (test code = 431) EOSINOPHILS RELATIVE PERCENT 1 % (BEAKER) (test code = 432) BASOPHILS RELATIVE PERCENT 1 % (BEAKER) (test code = 437) NEUTROPHILS ABSOLUTE COUNT 5.69 K/ L 1.80-8.00 (BEAKER) (test code = 670) LYMPHOCYTES ABSOLUTE COUNT 2.27 K/ L 1.48-4.50 (BEAKER) (test code = 414) MONOCYTES ABSOLUTE COUNT (BEAKER) 0.69 K/ L 0.00-1.30 (test code = 415) EOSINOPHILS ABSOLUTE COUNT 0.09 K/ L 0.00-0.50 (BEAKER) (test code = 416) BASOPHILS ABSOLUTE COUNT (BEAKER) 0.04 K/ L 0.00-0.20 (test code = 417) IMMATURE GRANULOCYTES-RELATIVE 0 % 0-0 PERCENT (BEAKER) (test code = 2801) White Blood [id number] 05:04:00 Test Item Value Reference Range Interpretation Comments White Blood Count (test code = 6690-2) 6.1 3.9-11.8 [facility] [id number] 05:04:00 Test Item Value Reference Range Interpretation Comments Red Blood Count (test code = 789-8) 3.79 4.18-5.86 [facility]landHemoglobin2020-03-20 05:04:00 Test Item Value Reference Range Interpretation Comments Hemoglobin (test code = 718-7) 11.2 13.1-17.5 [facility]landHematocrit2020-03-20 05:04:00 Test Item Value Reference Range Interpretation Comments Hematocrit (test code = 61253-5) 34.4 38.7-51.4 [facility] Corpuscular [id number] 05:04:00 Test Item Value Reference Range Interpretation Comments Mean Corpuscular Volume (test code = 90.8 79.8-99.1 56326-9) [facility] Corpuscular [id number] 05:04:00 Test Item Value Reference Range Interpretation Comments Mean Corpuscular Hemoglobin (test code 29.6 26.3-34.0 = 79821-1) [facility] Corpuscular Hgb Concent [id number] 05:04:00 Test Item Value Reference Range Interpretation Comments Mean Corpuscular Hgb Concent Diff (test 32.6 32.0-36.0 code = 33423-2) [facility] Cell Distribution [id number] 05:04:00 Test Item Value Reference Range Interpretation Comments Red Cell Distribution Width (test code 16.3 11.4-14.5 = 95200-5) [facility]landPlatelet [id number] 05:04:00 Test Item Value Reference Range Interpretation Comments Platelet Count (test code = 777-3) 263 152-386 [facility] Platelet [id number] 05:04:00 Test Item Value Reference Range Interpretation Comments Mean Platelet Volume (test code = 8.4 6.8-10.1 82865-7) [facility]landGranulocytes (%)2019 05:04:00 Test Item Value Reference Range Interpretation Comments Granulocytes (%) (test code = 98453-4) 51.9 37.8-74.6 [facility]landLymphocytes %2019 05:04:00 Test Item Value Reference Range Interpretation Comments Lymphocytes % (test code = 736-9) 35.5 16.1-47.9 [facility] MainlandMonocytes %2019 05:04:00 Test Item Value Reference Range Interpretation Comments Monocytes % (test code = 5905-5) 10.0 4.4-13.5 [facility] %2019 05:04:00 Test Item Value Reference Range Interpretation Comments Eosinophils % (test code = 713-8) 2.2 0.7-8.5 [facility] HospitalBasophils %2019 05:04:00 Test Item Value Reference Range Interpretation Comments Basophils % (test code = 35735-5) 0.4 0.0-2.0 [facility]anul[facility] #2019 05:04:00 Test Item Value Reference Range Interpretation Comments Granulocytes # (test code = 40893-1) 3.2 1.5-8.8 [facility]landLymphocytes #2019 05:04:00 Test Item Value Reference Range Interpretation Comments Lymphocytes # (test code = 89968-0) 2.2 0.6-5.7 [facility]landMonocytes #2019 05:04:00 Test Item Value Reference Range Interpretation Comments Monocytes # (test code = 742-7) 0.6 0.2-1.6 [facility]Eosinophils #2019 05:04:00 Test Item Value Reference Range Interpretation Comments Eosinophils # (test code = 711-2) 0.1 0.0-1.0 [facility]landBasophils #2019 05:04:00 Test Item Value Reference Range Interpretation Comments Basophils # (test code = 53145-7) 0.0 0.0-0.2 [facility]landManual [id number] 05:04:00 Test Item Value Reference Range Interpretation Comments Manual Differential (test code = Manual NO Differential) [facility]odium [id number] 05:04:00 Test Item Value Reference Range Interpretation Comments Sodium Level (test code = 2951-2) 140 135-144 [facility]landPotassium [id number] 05:04:00 Test Item Value Reference Range Interpretation Comments Potassium Level (test code = 2823-3) 3.7 3.5-5.1 [facility]landChloride [id number] 05:04:00 Test Item Value Reference Range Interpretation Comments Chloride Level (test code = 2075-0) 111 101-111 [facility]landCarbon Dioxide [id number] 05:04:00 Test Item Value Reference Range Interpretation Comments Carbon Dioxide Level (test code = 24 2232 8-9) [facility] MainlandAnion [id number] 05:04:00 Test Item Value Reference Range Interpretation Comments Anion Gap (test code = 20747-3) 8.7 10-20 [facility]landGlucose [id number] 05:04:00 Test Item Value Reference Range Interpretation Comments Glucose Level (test code = 2345-7) 82 65-99 Prediabetes 100 to 125 mg/dlDiabetes 126 mg/dl or higher Prediabetes refers to individuals with plasma glucose levelsintermediate between those considered normal and thoseconsidered diabetic and is also referred to as impairedglucose tolerance (IGT) or impaired fasting glucose (IFG). [facility] MainlandBlood Urea [id number] 05:04:00 Test Item Value Reference Range Interpretation Comments Blood Urea Nitrogen (test code = 9 01-10 3094-0) [facility] MainlandCreatinine2020-03-20 05:04:00 Test Item Value Reference Range Interpretation Comments Creatinine (test code = 2160-0) 0.8 0.61-1.24 [facility]landEGFR [id number] 05:04:00 Test Item Value Reference Range Interpretation Comments EGFR Note (test code = 12853-2) 139.2 59.3-175.8 eGFR (Estimated Glomerular Filtration Rate) eGFR calculation value obtained using the [facility] HospitalQuadratic (Q) equation. The reportable reference range isrecommended to be greater than 60 ml/min/1.73m. This is anestimation of the patient's GFR and clinical correlation isrecommended. This eGFR calculation does not account for race. This resultmay differ from other equations available. [facility] MainlandCalcium [id number] 05:04:00 Test Item Value Reference Range Interpretation Comments Calcium Level (test code = 29575-8) 7.8 8.9-10.3 [facility] MainlandMagnesium [id number] 05:04:00 Test Item Value Reference Range Interpretation Comments Magnesium Level (test code = 61136-4) 1.8 1.8-2.5 [facility] MainlandAlbumin2020-03-20 05:04:00 Test Item Value Reference Range Interpretation Comments Albumin (test code = 1751-7) 3.1 3.5-5.0 [facility] MainlandTotal [id number] 05:04:00 Test Item Value Reference Range Interpretation Comments Total Bilirubin (test code = 1975-2) 0.5 0.2-1.2 [facility] MainlandAlkaline [id number] 05:04:00 Test Item Value Reference Range Interpretation Comments Alkaline Phosphatase (test code = 59 32-91 6768-6) [facility] Sunnyvaletal [id number] 05:04:00 Test Item Value Reference Range Interpretation Comments Total Protein (test code = 2885-2) 6.1 6.5-8.1 [facility] MainlandAlanine Aminotransferase (ALT/SGPT)2019 05:04:00 Test Item Value Reference Range Interpretation Comments Alanine Aminotransferase (ALT/SGPT) 12 7-55 (test code = 1742-6) [facility] MainlandAspartate Amino Transf (AST/SGOT)2019 05:04:00 Test Item Value Reference Range Interpretation Comments Aspartate Amino Transf (AST/SGOT) (test 14 15-41 code = 1920-8) [facility]landGlobulin2020-03-20 05:04:00 Test Item Value Reference Range Interpretation Comments Globulin (test code = 30235-8) 3.0 2.3-3.5 [facility] MainlandAlbumin/Globulin [id number] 05:04:00 Test Item Value Reference Range Interpretation Comments Albumin/Globulin Ratio (test code = 1.0 1.2-2.2 1759-0) [facility] MainlandProthrombin [id number] 14:27:00 Test Item Value Reference Range Interpretation Comments Prothrombin Time (test code = 5964-2) 12.4 10.0-12.9 [facility] MainlandINR International Normalized [id number] 14:27:00 Test Item Value Reference Range Interpretation Comments INR International Normalized Ratio 1.1 0.91-1.15 (test code = 6301-6) THE INR IS TO BE USED ONLY FOR MONITORING ORAL ANTICOAGULANTTHERAPY. INDICATION INR VALUE 1. Prophylaxis of venous thrombosis 2.0-3.0 (high-risk surgery) Treatment of venous thrombosis Treatment of PE Prevention of systemic embolism Tissue heart valves AMI (to prevent systemic embolism) Valvular heart disease Atrial fibrillation Bileaflet mechanical valve in aortic position 2. Mechanical prosthetic heart valves (high risk) 2.5-3.5 Thrombosis and Antiphospholipid syndrome Prevention of recurrent PR Sixth ACCP Consensus Conference on Antithrombotic Therapy,Chest 2001; 119:Supplement 8-21.[facility] MainlandAmylase [id number] 14:27:00 Test Item Value Reference Range Interpretation Comments Amylase Level (test code = 1798-8) 34 36-128 [facility] MainlandLipase2020-03-19 14:27:00 Test Item Value Reference Range Interpretation Comments Lipase (test code = 3040-3) 26 22-51 [facility] MainlandURINALYSIS [id number] 03:29:00 Test Item Value Reference Range Interpretation Comments UA COLOR (test code = COLU) COLORLESS YELLOW A UA APPEARANCE (test code = CLEAR CLEAR APPU) UA GLUCOSE DIPSTICK (test NEGATIVE mg/dL NEGATIVE code = DGLUU) UA BILIRUBIN DIPSTICK (test NEGATIVE mg/dL NEGATIVE code = BILU) UA KETONE DIPSTICK (test code NEGATIVE mg/dL NEGATIVE = KETU) UA SPECIFIC GRAVITY (test 1.010 1.001-1.035 code = SGU) UA BLOOD DIPSTICK (test code Negative mg/dL NEGATIVE = REEMA) UA PH DIPSTICK (test code = 6.5 5.0-8.0 BREONNA) UA PROTEIN DIPSTICK (test NEGATIVE mg/dL NEGATIVE code = PROU) UA UROBILINIOGEN DIPSTICK Normal mg/dL NEGATIVE (test code = URO) UA NITRITE DIPSTICK (test NEGATIVE NEGATIVE code = LATRELL) UA LEUKOCYTE ESTERASE W NEGATIVE Jd/uL NEGATIVE REFLEX (test code = LEUUR) UA WBC (test code = WBCU) 0-5 per HPF 0-5 UA RBC (test code = RBCU) 0-2 #/HPF 0-5 UA EPITHELIAL CELLS (test 0 per HPF FEW code = EPIU) UA BACTERIA (test code = 0 #/HPF NONE BACU) UA MUCUS (test code = MUCU) FEW #/LPF FEW Urine Source? Clean CatchURINALYSIS [id number] 03:28:00 Test Item Value Reference Range Interpretation Comments UA COLOR (test code = COLU) COLORLESS YELLOW A UA APPEARANCE (test code = CLEAR CLEAR APPU) UA GLUCOSE DIPSTICK (test NEGATIVE mg/dL NEGATIVE code = DGLUU) UA BILIRUBIN DIPSTICK (test NEGATIVE mg/dL NEGATIVE code = BILU) UA KETONE DIPSTICK (test code NEGATIVE mg/dL NEGATIVE = KETU) UA SPECIFIC GRAVITY (test 1.010 1.001-1.035 code = SGU) UA BLOOD DIPSTICK (test code Negative mg/dL NEGATIVE = REEMA) UA PH DIPSTICK (test code = 6.5 5.0-8.0 BREONNA) UA PROTEIN DIPSTICK (test NEGATIVE mg/dL NEGATIVE code = PROU) UA UROBILINIOGEN DIPSTICK Normal mg/dL NEGATIVE (test code = URO) UA NITRITE DIPSTICK (test NEGATIVE NEGATIVE code = LATRELL) UA LEUKOCYTE ESTERASE W NEGATIVE Jd/uL NEGATIVE REFLEX (test code = LEUUR) UA WBC (test code = WBCU) per HPF 0-5 UA RBC (test code = RBCU) per HPF 0-5 UA EPITHELIAL CELLS (test per HPF Few code = EPIU) UA BACTERIA (test code = per HPF NONE BACU) Urine Source? Clean Catch- CT ABD PELVIS [id number] 00:46:00 Name: RYNE KWONG [facility] : 1985 Age/S: 33 / M [address] [facility] Unit #: [id number] Loc: G[place] Schmidt [address] Phys: Shreya Hightower CYLINDER DEVALVER Acct: [id number] Dis Date: Status: REG ER PHONE #: [phone] Exam Date: 05/20/201922 FAX #: [phone] Reason: diffuseabdominal pain, diarrhea EXAMS: CPTCODE: [id number] CT ABD PELVIS W/CONT 84599 AFTER HOURS SERVICE ON: 05/20/2019 12:[address] Scan of the Abdomen and Pelvis With Contrast Location Code M12 History: diffuse abdominal pain, diarrhea Technique: Axial and reconstructed coronal scans were performed on a helical scanner post IV contrast. Delayed scans were also obtained. One or more of the following dose reduction techniques were used: Automated exposure control, adjustment of the mA and/or kV according to patient size, and/or utilization of iterative reconstruction technique. Findings: LIVER: No significant findings. GALLBLADDER/BILIARY: No significant findings. PANCREAS: No significant findings. SPLEEN: No significant findings. ADRENALS: No significant findings. KIDNEYS: No hydronephrosis. BLADDER: No significant findings. GASTROINTESTINAL: There is extensive circumferential wall thickening of the distal ileum extending to the terminal segment consistent with ileitis. Remainder of the small bowel is unremarkable. There is no obstruction or free air. Colon and appendix are unremarkable. IMPRESSION: Findings consistent with ileitis involving the distal ileum and terminal segment. Finding is consistent with inflammatory bowel disease or an infectious etiology. at 0046 Reported and signed by: Kadie Nelson M.D. PAGE 1 Signed Report (CONTINUED) Name: RYNE KWONG [facility] : 1985 Age/S: 33 / M [address] [facility] Unit #: [id number] Loc: [place] [address] Phys: Shreya Hightower NP Acct: [id number] Dis Date: Status: REG ER PHONE #: [phone] Exam Date: 05/20/201922 FAX #: [phone] Reason: diffuse abdominal pain, diarrhea EXAMS: CPTCODE: [id number] CT ABD PELVIS W/CONT 09976 <Continued> CC: Shreya Hightower NP Technologist:Shabbir Rice(Kaitlin) CTDI: DLP: Trnscb Date/Time: 05/20/2019 (0046) [email or web address] Orig Print D/T: S: 05/20/2019 (0049) PAGE 2 Signed ReportBASIC METABOLIC [id number] 23:49:00 Test Item Value Reference Range Interpretation Comments SODIUM (test code = 142 mmol/L 136-145 N NA) POTASSIUM (test code 4.2 mmol/L 3.5-5.1 N = K) CHLORIDE (test code = 110.0 mmol/L 98-107 H CL) CARBON DIOXIDE (test 29.0 mmol/L 21-32 N code = CO2) ANION GAP (test code 7.2 10-20 L = GAP) GLUCOSE (test code = 80 mg/dL 74-106 N GLU) BLOOD UREA NITROGEN 14 mg/dL 7-18 N (test code = BUN) GLOMERULAR FILTRATION > 60 mL/min >=60 Estima johnathan GFR by RATE (test code = using Holly fied MDRD GFR) formula.Chronic kidney disease is defined as [facility] er kidney damageor GFR <60 mL/min/1.73 m2 for >3 months. CREATININE (test code 0.90 mg/dL 0.7-1.3 N = CREAT) BUN/CREATININE RATIO 15.6 10-20 N (test code = BUN/CREA) CALCIUM (test code = 9.1 mg/dL 8.5-10.1 N CA) HEPATIC FUNCTION [id number] 23:49:00 Test Item Value Reference Range Interpretation Comments TOTAL PROTEIN (test 7.7 gram/dL 6.4-8.2 N code = PROT) ALBUMIN (test code = 3.1 g/dL 3.4-5.0 L ALB) GLOBULIN (test code = 4.6 gram/dL 2.7-4.2 H GLOB) ALBUMIN/GLOBULIN RATIO 0.7 0.75-1.50 L (test code = A/G) BILIRUBIN TOTAL (test 0.10 mg/dL 0.0-1.0 N code = BILT) BILIRUBIN DIRECT (test < 0.05 mg/dL 0.0-0.20 N code = BILD) SGOT/AST (test code = 18 IUnit/L 15-37 N AST) SGPT/ALT (test code = 18 IUnit/L 12-78 N ALT) ALKALINE PHOSPHATASE 65 IUnit/L 45-117 N Note change in TOTAL (test code = reference range due ALKP) to change in reagent. [id number] 23:49:00 Test Item Value Reference Range Interpretation Comments LIPASE (test code = LIP) 101 U/L 73.0-393.0 N BASIC METABOLIC [id number] 23:41:00 Test Item Value Reference Range Interpretation Comments SODIUM (test code = NA) 142 mmol/L 136-145 N POTASSIUM (test code = K) 4.2 mmol/L 3.5-5.1 N CHLORIDE (test code = CL) 110.0 mmol/L 98-107 H CARBON DIOXIDE (test code = CO2) mmol/L 21-32 ANION GAP (test code = GAP) 10-20 GLUCOSE (test code = GLU) mg/dL 74-106 BLOOD UREA NITROGEN (test code = mg/dL 7-18 BUN) GLOMERULAR FILTRATION RATE (test mL/min >=60 code = GFR) CREATININE (test code = CREAT) mg/dL 0.7-1.3 BUN/CREATININE RATIO (test code 10-20 = BUN/CREA) CALCIUM (test code = CA) mg/dL 8.5-10.1 HEPATIC FUNCTION [id number] 23:41:00 Test Item Value Reference Range Interpretation Comments TOTAL PROTEIN (test code = PROT) gram/dL 6.4-8.2 ALBUMIN (test code = ALB) g/dL 3.4-5.0 GLOBULIN (test code = GLOB) gram/dL 2.7-4.2 ALBUMIN/GLOBULIN RATIO (test code = 0.75-1.50 A/G) BILIRUBIN TOTAL (test code = BILT) mg/dL 0.0-1.0 BILIRUBIN DIRECT (test code = BILD) mg/dL 0.0-0.20 SGOT/AST (test code = AST) IUnit/L 15-37 SGPT/ALT (test code = ALT) IUnit/L 12-78 ALKALINE PHOSPHATASE TOTAL (test IUnit/L 45-117 code = ALKP) [id number] 23:41:00 Test Item Value Reference Range Interpretation Comments LIPASE (test code = LIP) U/L 73.0-393.0 CBC W/O [id number] 23:37:00 Test Item Value Reference Range Interpretation Comments WHITE BLOOD CELL (test code = 8.5 K/mm3 4.5-12.5 N WBC) RED BLOOD CELL (test code = 4.79 mill/mm3 4.0-5.8 N RBC) HEMOGLOBIN (test code = HGB) 14.1 gram/dL 13.0-17.5 N HEMATOCRIT (test code = HCT) 44.4 % 42.0-52.0 N MEAN CELL VOLUME (test code = 92.7 fL 80-98 N MCV) MEAN CELL HGB (test code = MCH) 29.4 picogram 27.0-33.0 N MEAN CELL HGB CONCETRATION 31.8 gram/dL 33.0-36.0 L (test code = MCHC) RED CELL DISTRIBUTION WIDTH 14.0 % 11.6-16.2 N (test code = RDW) PLATELET COUNT (test code = 321 K/mm3 150-450 N PLT) MEAN PLATELET VOLUME (test code 9.4 fL 6.7-11.0 N = MPV) CBC W/O [id number] 23:36:00 Test Item Value Reference Range Interpretation Comments WHITE BLOOD CELL (test code = K/mm3 4.5-12.5 WBC) RED BLOOD CELL (test code = RBC) mill/mm3 4.0-5.8 HEMOGLOBIN (test code = HGB) 14.1 gram/dL 13.0-17.5 N HEMATOCRIT (test code = HCT) 44.4 % 42.0-52.0 N MEAN CELL VOLUME (test code = fL 80-98 MCV) MEAN CELL HGB (test code = MCH) picogram 27.0-33.0 MEAN CELL HGB CONCETRATION (test gram/dL 33.0-36.0 code = MCHC) RED CELL DISTRIBUTION WIDTH % 11.6-16.2 (test code = RDW) PLATELET COUNT (test code = PLT) K/mm3 150-450 MEAN PLATELET VOLUME (test code fL 6.7-11.0 = MPV) URINALYSIS [id number] 01:39:00 Test Item Value Reference Range Interpretation Comments UA COLOR (test code = COLU) Light-Yellow YELLOW UA APPEARANCE (test code = CLEAR CLEAR APPU) UA GLUCOSE DIPSTICK (test NEGATIVE mg/dL NEGATIVE code = DGLUU) UA BILIRUBIN DIPSTICK (test NEGATIVE mg/dL NEGATIVE code = BILU) UA KETONE DIPSTICK (test NEGATIVE mg/dL NEGATIVE code = KETU) UA SPECIFIC GRAVITY (test 1.006 1.001-1.035 code = SGU) UA BLOOD DIPSTICK (test Negative mg/dL NEGATIVE code = REEMA) UA PH DIPSTICK (test code = 6.5 5.0-8.0 BREONNA) UA PROTEIN DIPSTICK (test NEGATIVE mg/dL NEGATIVE code = PROU) UA UROBILINIOGEN DIPSTICK Normal mg/dL NEGATIVE (test code = URO) UA NITRITE DIPSTICK (test NEGATIVE NEGATIVE code = LATRELL) UA LEUKOCYTE ESTERASE W NEGATIVE Jd/uL NEGATIVE REFLEX (test code = LEUUR) UA WBC (test code = WBCU) 0-5 per HPF 0-5 UA RBC (test code = RBCU) 0-2 #/HPF 0-5 UA EPITHELIAL CELLS (test None seen per HPF FEW code = EPIU) UA BACTERIA (test code = NONE SEEN #/HPF NONE BACU) UA MUCUS (test code = MUCU) FEW #/LPF FEW Urine Source? Clean CatchDRUGS OF ABUSE SCREEN [id number] 01:39:00 Test Item Value Reference Range Interpretation Comments URN COCAINE (test NEGATIVE <300 ng/mL code = COCAURN) URN CANNABINOIDS POSITIVE <50 ng/mL A This test p rovides only a (test code = preliminary shad t result. CANNABURN) A morespecific alternate chemical method must be used in order t oobtain a confirmed kelle tical result. Gas chromatography/ mass spectrometry (G C/MS) is thepreferred co nfirmatory method. Other chemical confirmationmet hods are available. Cli nical consideration a nd professional ju dgment should be appli ed to any drug of abusete st result, particularly wh en preliminary pos itive resultsare used.Unconfirme d screening resul ts must not be used fornon-medical purposes (e.g., employme nt testing, legalt esting). URN AMPHETAMINE (test NEGATIVE <1000 ng/mL code = AMPHETURN) URN BARBITURATE (test NEGATIVE <200 ng/mL code = BARBITURN) URN BENZODIAZEPINE NEGATIVE <200 ng/mL (test code = BENZOURN) URN OPIATES (test NEGATIVE <300 ng/mL code = OPIATURN) URN PHENCYCLIDINE POSITIVE <25 ng/mL A This test provides only a (PCP) (test code = prelimina ry test result. PHENCURN) A morespecific alternate chemical method must be used in order t oobtain a confirmed kelle tical result. Gas chromatography/ mass spectrometry (G C/MS) is thepreferred co nfirmatory method. Other chemical confirmationmet hods are available. Cli nical consideration a nd professional ju dgment should be appli ed to any drug of abusete st result, particularly wh en preliminary pos itive resultsare used.Unconfirme d screening resul ts must not be used fornon-medical purposes (e.g., employme nt testing, legalt esting). URN METHADONE (test NEGATIVE <300 ng/mL code = METHAURN) Urine Source? Clean CatchBASIC METABOLIC [id number] 01:30:00 Test Item Value Reference Range Interpretation Comments SODIUM (test code = 141 mmol/L 136-145 N NA) POTASSIUM (test code 3.1 mmol/L 3.5-5.1 L = K) CHLORIDE (test code = 109.0 mmol/L 98-107 H CL) CARBON DIOXIDE (test 23.0 mmol/L 21-32 N code = CO2) ANION GAP (test code 12.1 10-20 N = GAP) GLUCOSE (test code = 126 mg/dL 74-106 H GLU) BLOOD UREA NITROGEN 15 mg/dL 7-18 N (test code = BUN) GLOMERULAR FILTRATION > 60 mL/min >=60 Estima johnathan GFR by RATE (test code = using Holly fied MDRD GFR) formula.Chronic kidney disease is defined as [facility] er kidney damageor GFR <60 mL/min/1.73 m2 for >3 months. CREATININE (test code 1.20 mg/dL 0.7-1.3 N = CREAT) BUN/CREATININE RATIO 12.1 10-20 N (test code = BUN/CREA) CALCIUM (test code = 8.7 mg/dL 8.5-10.1 N CA) HEPATIC FUNCTION [id number] 01:30:00 Test Item Value Reference Range Interpretation Comments TOTAL PROTEIN (test 6.9 gram/dL 6.4-8.2 N code = PROT) ALBUMIN (test code = 3.1 g/dL 3.4-5.0 L ALB) GLOBULIN (test code = 3.8 gram/dL 2.7-4.2 N GLOB) ALBUMIN/GLOBULIN RATIO 0.8 0.75-1.50 N (test code = A/G) BILIRUBIN TOTAL (test 0.30 mg/dL 0.0-1.0 N code = BILT) BILIRUBIN DIRECT (test 0.10 mg/dL 0.0-0.20 N code = BILD) SGOT/AST (test code = 10 IUnit/L 15-37 L AST) SGPT/ALT (test code = 12 IUnit/L 12-78 N ALT) ALKALINE PHOSPHATASE 69 IUnit/L 45-117 N Note change in TOTAL (test code = reference range due ALKP) to change in reagent. [id number] 01:30:00 Test Item Value Reference Range Interpretation Comments ACETAMINOPHEN (test < 10 mcg/mL 10-30 L A RANGE OF 10-30 code = ACET) mcg/mL IS A THERAPEUTIC RAN GE. TOXIC CONCENTRATIONS: >150 mcg/mL AT 4 NORMA RS AFTER INGESTION >= 50 mcg/mL AT 12 HOURS AFTER INGESTION [id number] 01:30:00 Test Item Value Reference Range Interpretation Comments SALICYLATE (test code = NIDHI) 2.9 mg/dL 2.8-20.0 N [id number] 01:30:00 Test Item Value Reference Range Interpretation Comments ALCOHOL (test code < 3 mg/dL 0.0-3.0 N --------- --------INTERPRE = ALC) TIVE DATA NOTE: POSITIVE SCREEN ING RESULTS SHOULD BE CONSIDERED PRESUMPTIVE.WHE N COLLECTED FOR M EDICAL PURPOSES ONLY. SPECIMEN WILL NOTBE TY ECTED BY CHAIN OF CUSTOD Y.IF A CONFIRMATION OF POSITIVE RESULTS IS OLIVIA RED, ACONFIRMATION T EST MUST BE REQUESTED BY THE PHYSICIAN AT AN ADDITIONAL CHARGE TO THE P ATIENT. URINALYSIS [id number] 01:09:00 Test Item Value Reference Range Interpretation Comments UA COLOR (test code = COLU) Light-Yellow YELLOW UA APPEARANCE (test code = CLEAR CLEAR APPU) UA GLUCOSE DIPSTICK (test NEGATIVE mg/dL NEGATIVE code = DGLUU) UA BILIRUBIN DIPSTICK (test NEGATIVE mg/dL NEGATIVE code = BILU) UA KETONE DIPSTICK (test NEGATIVE mg/dL NEGATIVE code = KETU) UA SPECIFIC GRAVITY (test 1.006 1.001-1.035 code = SGU) UA BLOOD DIPSTICK (test Negative mg/dL NEGATIVE code = REEMA) UA PH DIPSTICK (test code = 6.5 5.0-8.0 BREONNA) UA PROTEIN DIPSTICK (test NEGATIVE mg/dL NEGATIVE code = PROU) UA UROBILINIOGEN DIPSTICK Normal mg/dL NEGATIVE (test code = URO) UA NITRITE DIPSTICK (test NEGATIVE NEGATIVE code = LATRELL) UA LEUKOCYTE ESTERASE W NEGATIVE Jd/uL NEGATIVE REFLEX (test code = LEUUR) UA WBC (test code = WBCU) 0-5 per HPF 0-5 UA RBC (test code = RBCU) 0-2 #/HPF 0-5 UA EPITHELIAL CELLS (test None seen per HPF FEW code = EPIU) UA BACTERIA (test code = NONE SEEN #/HPF NONE BACU) UA MUCUS (test code = MUCU) FEW #/LPF FEW Urine Source? Clean CatchDRUGS OF ABUSE SCREEN [id number] 01:09:00 Test Item Value Reference Range Interpretation Comments URN COCAINE (test code = COCAURN) <300 ng/mL URN CANNABINOIDS (test code = <50 ng/mL CANNABURN) URN AMPHETAMINE (test code = AMPHETURN) <1000 ng/mL URN BARBITURATE (test code = BARBITURN) <200 ng/mL URN BENZODIAZEPINE (test code = <200 ng/mL BENZOURN) URN OPIATES (test code = OPIATURN) <300 ng/mL URN PHENCYCLIDINE (PCP) (test code = <25 ng/mL PHENCURN) URN METHADONE (test code = METHAURN) <300 ng/mL Urine Source? Clean CatchURINALYSIS [id number] 01:08:00 Test Item Value Reference Range Interpretation Comments UA COLOR (test code = COLU) Light-Yellow YELLOW UA APPEARANCE (test code = CLEAR CLEAR APPU) UA GLUCOSE DIPSTICK (test NEGATIVE mg/dL NEGATIVE code = DGLUU) UA BILIRUBIN DIPSTICK (test NEGATIVE mg/dL NEGATIVE code = BILU) UA KETONE DIPSTICK (test code NEGATIVE mg/dL NEGATIVE = KETU) UA SPECIFIC GRAVITY (test 1.006 1.001-1.035 code = SGU) UA BLOOD DIPSTICK (test code Negative mg/dL NEGATIVE = REEMA) UA PH DIPSTICK (test code = 6.5 5.0-8.0 BREONNA) UA PROTEIN DIPSTICK (test NEGATIVE mg/dL NEGATIVE code = PROU) UA UROBILINIOGEN DIPSTICK Normal mg/dL NEGATIVE (test code = URO) UA NITRITE DIPSTICK (test NEGATIVE NEGATIVE code = LATRELL) UA LEUKOCYTE ESTERASE W NEGATIVE Jd/uL NEGATIVE REFLEX (test code = LEUUR) UA WBC (test code = WBCU) per HPF 0-5 UA RBC (test code = RBCU) per HPF 0-5 UA EPITHELIAL CELLS (test per HPF Few code = EPIU) UA BACTERIA (test code = per HPF NONE BACU) Urine Source? Clean CatchDRUGS OF ABUSE SCREEN [id number] 01:08:00 Test Item Value Reference Range Interpretation Comments URN COCAINE (test code = COCAURN) <300 ng/mL URN CANNABINOIDS (test code = <50 ng/mL CANNABURN) URN AMPHETAMINE (test code = AMPHETURN) <1000 ng/mL URN BARBITURATE (test code = BARBITURN) <200 ng/mL URN BENZODIAZEPINE (test code = <200 ng/mL BENZOURN) URN OPIATES (test code = OPIATURN) <300 ng/mL URN PHENCYCLIDINE (PCP) (test code = <25 ng/mL PHENCURN) URN METHADONE (test code = METHAURN) <300 ng/mL Urine Source? Clean CatchCBC W/O [id number] 01:08:00 Test Item Value Reference Range Interpretation Comments WHITE BLOOD CELL (test code = 10.2 K/mm3 4.5-12.5 N WBC) RED BLOOD CELL (test code = 4.37 mill/mm3 4.0-5.8 N RBC) HEMOGLOBIN (test code = HGB) 13.3 gram/dL 13.0-17.5 N HEMATOCRIT (test code = HCT) 40.8 % 42.0-52.0 L MEAN CELL VOLUME (test code = 93.4 fL 80-98 N MCV) MEAN CELL HGB (test code = MCH) 30.4 picogram 27.0-33.0 N MEAN CELL HGB CONCETRATION 32.6 gram/dL 33.0-36.0 L (test code = MCHC) RED CELL DISTRIBUTION WIDTH 13.7 % 11.6-16.2 N (test code = RDW) PLATELET COUNT (test code = 279 K/mm3 150-450 N PLT) MEAN PLATELET VOLUME (test code 9.6 fL 6.7-11.0 N = MPV) CBC W/O [id number] 01:07:00 Test Item Value Reference Range Interpretation Comments WHITE BLOOD CELL (test code = K/mm3 4.5-12.5 WBC) RED BLOOD CELL (test code = RBC) mill/mm3 4.0-5.8 HEMOGLOBIN (test code = HGB) 13.3 gram/dL 13.0-17.5 N HEMATOCRIT (test code = HCT) % 42.0-52.0 MEAN CELL VOLUME (test code = fL 80-98 MCV) MEAN CELL HGB (test code = MCH) picogram 27.0-33.0 MEAN CELL HGB CONCETRATION (test gram/dL 33.0-36.0 code = MCHC) RED CELL DISTRIBUTION WIDTH % 11.6-16.2 (test code = RDW) PLATELET COUNT (test code = PLT) K/mm3 150-450 MEAN PLATELET VOLUME (test code fL 6.7-11.0 = MPV) BASIC METABOLIC [id number] 01:05:00 Test Item Value Reference Range Interpretation Comments SODIUM (test code = NA) 141 mmol/L 136-145 N POTASSIUM (test code = K) 3.1 mmol/L 3.5-5.1 L CHLORIDE (test code = CL) 109.0 mmol/L 98-107 H CARBON DIOXIDE (test code = CO2) mmol/L 21-32 ANION GAP (test code = GAP) 10-20 GLUCOSE (test code = GLU) mg/dL 74-106 BLOOD UREA NITROGEN (test code = mg/dL 7-18 BUN) GLOMERULAR FILTRATION RATE (test mL/min >=60 code = GFR) CREATININE (test code = CREAT) mg/dL 0.7-1.3 BUN/CREATININE RATIO (test code 10-20 = BUN/CREA) CALCIUM (test code = CA) mg/dL 8.5-10.1 HEPATIC FUNCTION [id number] 01:05:00 Test Item Value Reference Range Interpretation Comments TOTAL PROTEIN (test code = PROT) gram/dL 6.4-8.2 ALBUMIN (test code = ALB) g/dL 3.4-5.0 GLOBULIN (test code = GLOB) gram/dL 2.7-4.2 ALBUMIN/GLOBULIN RATIO (test code = 0.75-1.50 A/G) BILIRUBIN TOTAL (test code = BILT) mg/dL 0.0-1.0 BILIRUBIN DIRECT (test code = BILD) mg/dL 0.0-0.20 SGOT/AST (test code = AST) IUnit/L 15-37 SGPT/ALT (test code = ALT) IUnit/L 12-78 ALKALINE PHOSPHATASE TOTAL (test IUnit/L 45-117 code = ALKP) [id number] 01:05:00 Test Item Value Reference Range Interpretation Comments ACETAMINOPHEN (test code = ACET) mcg/mL 10-30 [id number] 01:05:00 Test Item Value Reference Range Interpretation Comments SALICYLATE (test code = NIDHI) mg/dL 2.8-20.0 [id number] 01:05:00 Test Item Value Reference Range Interpretation Comments ALCOHOL (test code = ALC) mg/dL 0-3 BASIC METABOLIC [id number] 19:32:00 Test Item Value Reference Range Interpretation Comments SODIUM (test code = 143 mmol/L 136-145 N NA) POTASSIUM (test code 3.5 mmol/L 3.5-5.1 N = K) CHLORIDE (test code = 110.0 mmol/L 98-107 H CL) CARBON DIOXIDE (test 26.0 mmol/L 21-32 N code = CO2) ANION GAP (test code 10.5 10-20 N = GAP) GLUCOSE (test code = 122 mg/dL 74-106 H GLU) BLOOD UREA NITROGEN 11 mg/dL 7-18 N (test code = BUN) GLOMERULAR FILTRATION > 60 mL/min >=60 Estima johnathan GFR by RATE (test code = using Holly fied MDRD GFR) formula.Chronic kidney disease is defined as eith er kidney damageor GFR <60 mL/min/1.73 m2 for >3 months. CREATININE (test code 1.00 mg/dL 0.7-1.3 N = CREAT) BUN/CREATININE RATIO 11.0 10-20 N (test code = BUN/CREA) CALCIUM (test code = 8.7 mg/dL 8.5-10.1 N CA) HEPATIC FUNCTION [id number] 19:32:00 Test Item Value Reference Range Interpretation Comments TOTAL PROTEIN (test 7.6 gram/dL 6.4-8.2 N code = PROT) ALBUMIN (test code = 3.1 g/dL 3.4-5.0 L ALB) GLOBULIN (test code = 4.5 gram/dL 2.7-4.2 H GLOB) ALBUMIN/GLOBULIN RATIO 0.7 0.75-1.50 L (test code = A/G) BILIRUBIN TOTAL (test 0.30 mg/dL 0.0-1.0 N code = BILT) BILIRUBIN DIRECT (test 0.09 mg/dL 0.0-0.20 N code = BILD) SGOT/AST (test code = 9 IUnit/L 15-37 L AST) SGPT/ALT (test code = 14 IUnit/L 12-78 N ALT) ALKALINE PHOSPHATASE 83 IUnit/L 45-117 N Note change in TOTAL (test code = reference range due ALKP) to change in reagent. [id number] 19:32:00 Test Item Value Reference Range Interpretation Comments LIPASE (test code = LIP) 71 U/L 73.0-393.0 L CBC W/O [id number] 19:22:00 Test Item Value Reference Range Interpretation Comments WHITE BLOOD CELL (test code = 7.9 K/mm3 4.5-12.5 N WBC) RED BLOOD CELL (test code = 4.58 mill/mm3 4.0-5.8 N RBC) HEMOGLOBIN (test code = HGB) 14.0 gram/dL 13.0-17.5 N HEMATOCRIT (test code = HCT) 42.3 % 42.0-52.0 N MEAN CELL VOLUME (test code = 92.4 fL 80-98 N MCV) MEAN CELL HGB (test code = MCH) 30.6 picogram 27.0-33.0 N MEAN CELL HGB CONCETRATION 33.1 gram/dL 33.0-36.0 N (test code = MCHC) RED CELL DISTRIBUTION WIDTH 13.7 % 11.6-16.2 N (test code = RDW) PLATELET COUNT (test code = 270 K/mm3 150-450 N PLT) MEAN PLATELET VOLUME (test code 9.8 fL 6.7-11.0 N = MPV) CBC W/O [id number] 19:19:00 Test Item Value Reference Range Interpretation Comments WHITE BLOOD CELL (test code = K/mm3 4.5-12.5 WBC) RED BLOOD CELL (test code = RBC) mill/mm3 4.0-5.8 HEMOGLOBIN (test code = HGB) 14.0 gram/dL 13.0-17.5 N HEMATOCRIT (test code = HCT) 42.3 % 42.0-52.0 N MEAN CELL VOLUME (test code = fL 80-98 MCV) MEAN CELL HGB (test code = MCH) picogram 27.0-33.0 MEAN CELL HGB CONCETRATION (test gram/dL 33.0-36.0 code = MCHC) RED CELL DISTRIBUTION WIDTH % 11.6-16.2 (test code = RDW) PLATELET COUNT (test code = PLT) K/mm3 150-450 MEAN PLATELET VOLUME (test code fL 6.7-11.0 = MPV) - CT ABD PELVIS W/O [id number] 18:53:00 Name: RYNE KWONG [facility] : 1985 Age/S: 33 / M [address] [facility] Unit #: [id number] Loc: [place] [address] Phys: Chalo Marshall MD Acct: [id number] Dis Date: Status: REG ER PHONE #: [phone] Exam Date: 11/07/2018 1841 FAX #: [phone] Reason: abdominal pain EXAMS: CPTCODE: [id number] CT ABD PELVIS W/O CONT [id number] HISTORY: abdominal pain TECHNIQUE: 5mm axial CT images were obtained through the abdomen and pelvis without contrast. Sagittal and coronal reformatted images were generated. Automated exposure control for dose reduction. COMPARISON: None FINDINGS: Lung bases are clear. Normal heart size. Nonenhanced liver, gallbladder, pancreas, spleen, and adrenal glands are unremarkable. Nonenhanced bilateral kidneys are unremarkable. No urinary calculi hydronephrosis. Limited evaluation the GI tract without oral contrast. Stomach is unremarkable. Wall thickening of the terminal ileum. Remainder of the small bowel is unremarkable. Normal appendix. Colon is unremarkable. No free air or free fluid. No lymphadenopathy. Abdominal aorta is normal in caliber.Urinary bladder is collapsed and not well evaluated. Seminal vesicles and prostate gland are unremarkable. Pelvic phleboliths. No pelvic free fluid. Regional osseous structures are unremarkable. IMPRESSION: Wall thickening of the terminal ileum; correlate with clinical evidence of infectious/inflammatory ileitis. at 1853 Reported and signed by: Judy Ingram D.O. PAGE 1 Signed Report (CONTINUED) Name: RYNE KWONG [facility] : 1985 Age/S: 33 / M [address] [facility] Unit #: [id number] Loc: [place] [address] Phys: Chalo Marshall MD Acct: [id number] Dis Date: Status: REG ER PHONE #: [phone] Exam Date: 11/07/2018 1841 FAX #: [phone] Reason: abdominal pain EXAMS: CPT CODE: [id number] CT ABD PELVIS W/O CONT [id number] <Continued> CC: Chalo Marshall MD Technologist:Wayne Medley RT(R)(CT) CTDI: DLP: Trnscb Date/Time: 11/07/2018(1852) [email or web address] Orig Print D/T: S: 11/07/2018 (1855) PAGE 2 Signed ReportURINALYSIS COMPLETE 2018-11-07 18:40:00 Test Item Value Reference Range Interpretation Comments UA COLOR (test code = Light-Yellow YELLOW COLU) UA APPEARANCE (test code CLEAR CLEAR = APPU) UA GLUCOSE DIPSTICK (test NEGATIVE mg/dL NEGATIVE code = DGLUU) UA BILIRUBIN DIPSTICK NEGATIVE mg/dL NEGATIVE (test code = BILU) UA KETONE DIPSTICK (test NEGATIVE mg/dL NEGATIVE code = KETU) UA SPECIFIC GRAVITY (test 1.012 1.001-1.035 code = SGU) UA BLOOD DIPSTICK (test 0.1 mg/dL (1+) mg/dL NEGATIVE A code = REEMA) UA PH DIPSTICK (test code 5.5 5.0-8.0 = BREONNA) UA PROTEIN DIPSTICK (test NEGATIVE mg/dL NEGATIVE code = PROU) UA UROBILINIOGEN DIPSTICK Normal mg/dL NEGATIVE (test code = URO) UA NITRITE DIPSTICK (test NEGATIVE NEGATIVE code = LATRELL) UA LEUKOCYTE ESTERASE W NEGATIVE Jd/uL NEGATIVE REFLEX (test code = LEUUR) UA WBC (test code = WBCU) 0-5 per HPF 0-5 UA RBC (test code = RBCU) 6-10 #/HPF 0-5 A UA EPITHELIAL CELLS (test FEW per HPF FEW code = EPIU) UA BACTERIA (test code = NONE SEEN #/HPF NONE BACU) UA MUCUS (test code = FEW #/LPF FEW MUCU) Urine Source? Clean Catch"
[2021-08-02 10:30] LABS: Absolute Lymphocytes (CBC) 1.2 K/uL (0.7-4.9); Hematocrit 37.8 % (39.6-49.0); Lymphocytes % 21.1 % (15.3-44.8); MPV 7.1 fL (7.6-11.3); RBC Red Blood Cell Count 4.12 M/uL (4.33-5.43)
[2021-08-02 10:46] LABS: Albumin 3.1 g/dL (3.4-5.0); Bilirubin Total 0.5 mg/dL (0.2-1.0); Potassium 3.6 mmol/L (3.5-5.1); Protein, Total 6.9 g/dL (6.4-8.2)
--- NOTE | 2021-08-02 11:35 | RAD REPORT ---
EXAM DESCRIPTION: CT - Abdomen Pelvis W Contrast - 08/02/2021 11:17 am CLINICAL HISTORY: ABD PAIN, history of Crohn's disease COMPARISON: No comparisons TECHNIQUE: Biphasic, helical CT imaging of the abdomen and pelvis was performed following 100 ml non -ionic IV contrast. No oral contrast administered. All CT scans are performed using dose optimization technique as appropriate and may include automated exposure control or mA/KV adjustment according to patient size. FINDINGS: No suspicious findings in the lung bases. The liver, spleen, and pancreas show no suspicious findings. Gallbladder is contracted limiting asses sment. No suspicion for an acute gallbladder process. No dilatation of the biliary tree. Symmetric renal function is seen with no hydronephrosis or suspicious renal mass. No pyelonephritis o r acute parenchymal process. No bladder abnormalities. No adrenal abnormalities. No gastric abnormality. Small bowel to the mid ileum level is without acute finding. There is circumf erential wall thickening and edema of the terminal ileum with stranding in the adjacent fat. This is consistent with an acute Crohn's ileitis. Torres of the cecum do not appear to be involved. The append ix is unremarkable. Moderate stool volume is present throughout the colon but no acute colon process is seen. No free air, free fluid or pneumatosis. No hernia, mass or bulky lymphadenopathy. No suspicious bony findings. IMPRESSION: Crohn's ileitis pattern is present with circumferential wall thickening and edema of the terminal ileum with stranding in the adjacent fatty tissues. No colon involvement seen. No free air, obstruction or emergent finding otherwise noted.
--- NOTE | 2021-08-02 11:42 | EDPHYS ---
Physician Documentation [facility] Name: Uriel Barajas Age: 35 yrs Sex: Male : 1985 Arrival Date: 08/02/2021 Time: 10:05 Bed 7 Private MD: ED Physician Kadie Chapman HPI: 08/02 10:37 This 35 yrs old Male presents to ER via [employer] with complaints of Abdominal jr8 Pain. 10:37 The patient presents with abdominal pain in the lower abdomen. Onset: The jr8 symptoms/episode began/occurred gradually, 2 day(s) ago. The symptoms do not radiate. Associated signs and symptoms: Pertinent positives: diarrhea. The symptoms are described as crampy, stabbing. Modifying factors: The symptoms are alleviated by nothing, the symptoms are aggravated by nothing. Severity of pain: At its worst the pain was moderate in the emergency department the pain is unchanged. The patient has experienced similar episodes in the past, a few times. The patient has not recently seen a physician. This is a 35-year-old patient with a history of Crohn's disease that presented to the emergency room with complaints of lower abdominal pain along with bloody mucoid stools. Has had similar symptoms in the past and was a result of a flareup from his Crohn's. Feels that this is similar in nature and without any other complaints at this time.. Historical: - Allergies: 10:08 No Known Allergies; vg1 - Home Meds: 10:08 Dicyclomine Oral [Active]; Prednisone Oral [Active]; vg1 - PMHx: 10:08 Crohn's disease; vg1 - Immunization history:: Client reports having NOT received the Covid vaccine. - Social history:: Smoking status: Patient reports the use of cigarette tobacco products, smokes one-half pack cigarettes per day. ROS: 10:37 Eyes: Negative for injury, pain, redness, and discharge, ENT: Negative for injury, jr8 pain, and discharge, Neck: Negative for injury, pain, and swelling, Cardiovascular: Negative for chest pain, palpitations, and edema, Respiratory: Negative for shortness of breath, cough, wheezing, and pleuritic chest pain, Back: Negative for injury and pain, MS/Extremity: Negative for injury and deformity, Skin: Negative for injury, rash, and discoloration, Neuro: Negative for headache, weakness, numbness, tingling, and seizure. 10:37 Abdomen/GI: Positive for abdominal pain, diarrhea, abdominal cramps, rectal bleeding, Negative for nausea and vomiting. Exam: 10:37 Constitutional: This is a well developed, well nourished patient who is awake, alert, jr8 and in no acute distress. Cardiovascular: Regular rate and rhythm with a normal S1 and S2. No gallops, murmurs, or rubs. Normal PMI, no JVD. No pulse deficits. Respiratory: Lungs have equal breath sounds bilaterally, clear to auscultation and percussion. No rales, rhonchi or wheezes noted. No increased work of breathing, no retractions or nasal flaring. Back: No spinal tenderness. No costovertebral tenderness. Full range of motion. Skin: Warm, dry with normal turgor. Normal color with no rashes, no lesions, and no evidence of cellulitis. MS/ Extremity: Pulses equal, no cyanosis. Neurovascular intact. Full, normal range of motion. Neuro: Awake and alert, GCS 15, oriented to person, place, time, and situation. Cranial nerves II-XII grossly intact. Motor strength 5/5 in all extremities. Sensory grossly intact. 10:37 Abdomen/GI: Inspection: abdomen appears normal, Bowel sounds: active, all quadrants, Palpation: soft, in all quadrants, mild abdominal tenderness, in the right lower quadrant and left lower quadrant, mass, is not appreciated, rebound tenderness, is not appreciated, voluntary guarding, is not appreciated, involuntary guarding, is not appreciated, no appreciated organomegaly, Indicators: McBurney's point is not tender, Walls's sign is negative, Rovsing's sign is negative, Liver: tenderness, is not appreciated. Vital Signs: 09:55 BP 121 / 87; Pulse 80; Resp 16; Temp 98.0(O); Pulse Ox 100% ; Weight 81.65 kg; Height 5 vg1 ft. 10 in. (177.80 cm); Pain 8/10; 10:45 BP 116 / 63; Pulse 71; Resp 16; Pulse Ox 98% on R/A; vg1 09:55 Body Mass Index 25.83 (81.65 kg, 177.80 cm) vg1 MDM: 10:10 Patient medically screened. jr8 11:39 Data reviewed: vital signs, nurses notes, lab test result(s), radiologic studies, CT jr8 scan. Data interpreted: Pulse oximetry: on room air is 98 %. Interpretation: normal. Counseling: I had a detailed discussion with the patient and/or guardian regarding: the historical points, exam findings, and any diagnostic results supporting the discharge/admit diagnosis, lab results, radiology results, the need for outpatient follow up, a family practitioner, a floodplain manager, to return to the emergency department if symptoms worsen or persist or if there are any questions or concerns that arise at home. Special discussion: Based on the patient's Hx, exam, and Dx evaluation, there is no indication for emergent surgery or inpatient Tx. It is understood by the patient/guardian that if the Sx's persist or worsen they need to return immediately for re-evaluation. 08/02 10:11 Order name: CBC with Diff [facility] 08/02 10:11 Order name: CMP [facility] 08/02 10:11 Order name: Lipase [facility] 08/02 10:11 Order name: CBC with Automated Diff; Complete Time: 11:17 [facility] 08/02 10:11 Order name: Comprehensive Metabolic Panel; Complete Time: 11:17 [facility] 08/02 10:11 Order name: Lipase; Complete Time: 11:17 [facility] 08/02 10:11 Order name: CT Abd/Pelvis - IV Contrast Only; Complete Time: 11:38 [facility] 08/02 10:11 Order name: IV Saline Lock; Complete Time: 10:20 [facility] 08/02 10:11 Order name: Labs collected and sent; Complete Time: 10:20 jr Administered Medications: 12:10 Drug: Cipro (ciprofloxacin) 500 mg Route: PO; aa5 12:15 Follow up: Response: Medication administered at discharge. aa5 12:10 Drug: metroNIDAZOLE 500 mg Route: PO; aa5 12:15 Follow up: Response: Medication administered at discharge. aa5 Disposition Summary: 08/02/21 11:42 Discharge Ordered Location: [employer] [facility] Problem: new jr8 Symptoms: have improved jr8 Condition: Stable jr8 Diagnosis - Crohn's disease of small intestine with other complication jr8 Followup: jr8 - With: Michele Mc MD - When: 10 - 14 days - Reason: Recheck today's complaints, Continuance of care, Re-evaluation by your physician Discharge Instructions: - Discharge Summary Sheet jr8 - Crohn's Disease jr8 Forms: - Medication Reconciliation Form jr8 - Thank You Letter jr8 - Antibiotic Education jr8 - Prescription Opioid Use jr8 Prescriptions: - Cipro 500 mg Oral Tablet - take 1 tablet by ORAL route every 12 hours for 10 days; 20 tablet; Refills: 0, jr8 Product Selection Permitted - Flagyl 500 mg Oral Tablet - take 1 tablet by ORAL route every 6 hours for 10 days; 40 tablet; Refills: 0, jr8 Product Selection Permitted - dicyclomine 20 mg Oral Tablet - take 1 tablet by ORAL route 3 times per day As needed; 21 tablet; Refills: 0, jr8 Product Selection Permitted - Tylenol-Codeine #3 300 mg-30 mg Oral - take 2 tablet by ORAL route every 8 hours As needed; 18 tablet; Refills: 0, jr8 Product Selection Permitted Signatures: Dispatcher [employer] Sena Pedraza, RN RN aa5 Vic Smith PA PA jr8 Dorina Capone RN RN vg1
--- NOTE | 2021-08-02 11:42 | ER ---
Nurse's Notes [facility] Name: Uriel Barajas Age: 35 yrs Sex: Male : 1985 Arrival Date: 08/02/2021 Time: 10:05 Bed 7 Private MD: Diagnosis: Crohn's disease of small intestine with other complication Presentation: 08/02 09:55 Chief complaint: Patient states: Rectal and ABD pain x 2 weeks with nausea and diarrhea.vg1 09:55 Method Of Arrival: Law Enforcement: [place] [employer] vg1 09:55 Coronavirus screen: Vaccine status: Patient reports being unvaccinated. Client denies vg1 travel out of the [place] in the last 14 days. Ebola Screen: Patient negative for fever greater than or equal to 101.5 degrees Fahrenheit, and additional compatible Ebola Virus Disease symptoms. Initial Sepsis Screen: Does the patient meet any 2 criteria? No. Patient's initial sepsis screen is negative. Does the patient have a suspected source of infection? No. Patient's initial sepsis screen is negative. Risk Assessment: Do you want to hurt yourself or someone else? Patient reports no desire to harm self or others. Onset of symptoms was July 19, 2021. 09:55 Acuity: DARLENE 3 vg1 Triage Assessment: 09:55 General: Appears in no apparent distress. uncomfortable, Behavior is calm, cooperative. vg1 Pain: Complains of pain in abdomen and rectum Pain currently is 8 out of 10 on a pain scale. Pain began x 2 weeks. EENT: No signs and/or symptoms were reported regarding the EENT system. Neuro: Level of Consciousness is awake, alert, obeys commands, Oriented to person, place, time, situation. Cardiovascular: Patient's skin is warm and dry. Respiratory: Airway is patent Respiratory effort is even, unlabored. GI: Abdomen is round non-distended, Reports diarrhea, nausea. : No signs and/or symptoms were reported regarding the genitourinary system. Derm: Skin is intact, is healthy with good turgor. Musculoskeletal: Circulation, motion, and sensation intact. Historical: - Allergies: 10:08 No Known Allergies; vg1 - Home Meds: 10:08 Dicyclomine Oral [Active]; Prednisone Oral [Active]; vg1 - PMHx: 10:08 Crohn's disease; vg1 - Immunization history:: Client reports having NOT received the Covid vaccine. - Social history:: Smoking status: Patient reports the use of cigarette tobacco products, smokes one-half pack cigarettes per day. Screenin:11 Abuse screen: Denies threats or abuse. Nutritional screening: No deficits noted. vg1 Tuberculosis screening: No symptoms or risk factors identified. Fall Risk No fall in past 12 months (0 pts). No secondary diagnosis (0 pts). IV access (20 points). Ambulatory Aid- None/Bed Rest/Nurse Assist (0 pts). Gait- Normal/Bed Rest/Wheelchair (0 pts) Mental Status- Oriented to own ability (0 pts). Total Love Fall Scale indicates No Risk (0-24 pts). Assessment: 10:11 Reassessment: SEE TRIAGE. vg1 11:07 Reassessment: Patient appears in no apparent distress at this time. No changes from vg1 previously documented assessment. Patient and/or family updated on plan of care and expected duration. Pain level reassessed. Patient is alert, oriented x 3, equal unlabored respirations, skin warm/dry/pink. 12:10 Reassessment: Patient is alert, oriented x 3, equal unlabored respirations, skin aa5 warm/dry/pink. Vital Signs: 09:55 BP 121 / 87; Pulse 80; Resp 16; Temp 98.0(O); Pulse Ox 100% ; Weight 81.65 kg; Height 5 vg1 ft. 10 in. (177.80 cm); Pain 8/10; 10:45 BP 116 / 63; Pulse 71; Resp 16; Pulse Ox 98% on R/A; vg1 09:55 Body Mass Index 25.83 (81.65 kg, 177.80 cm) vg1 ED Course: 09:55 Arm band placed on. vg1 10:05 Patient arrived in ED. em1 10:06 Dorina Capone, ANIA is Primary Nurse. vg1 10:08 Triage completed. vg1 10:10 Vic Smith PA is PHCP. jr8 10:10 Kadie Chapman MD is Attending Physician. jr8 10:11 Patient has correct armband on for positive identification. Bed in low position. Call vg1 light in reach. Side rails up X 1. PD at bedside; pt in handcuffs. 10:19 Initial lab(s) drawn, by me, sent to lab. Inserted saline lock: 20 gauge in right aa5 forearm, using aseptic technique. Blood collected. 11:16 CT Abd/Pelvis - IV Contrast Only In Process Unspecified. EDMS 11:40 Michele Mc MD is Referral Physician. jr8 12:10 No provider procedures requiring assistance completed. IV discontinued, intact, aa5 bleeding controlled, No redness/swelling at site. Pressure dressing applied. Administered Medications: 12:10 Drug: Cipro (ciprofloxacin) 500 mg Route: PO; aa5 12:15 Follow up: Response: Medication administered at discharge. aa5 12:10 Drug: metroNIDAZOLE 500 mg Route: PO; aa5 12:15 Follow up: Response: Medication administered at discharge. aa5 Outcome: 11:42 Discharge ordered by . jr8 12:15 Discharged to [facility], [facility]. aa5 12:15 Condition: stable 12:15 Discharge instructions given to patient, police, Instructed on discharge instructions, follow up and referral plans. medication usage, Demonstrated understanding of instructions, follow-up care, medications, Prescriptions given X 4. 12:19 Patient left the ED. aa5 Signatures: Dispatcher [employer] EDMS Pro Marshall em1 Sena Baltazar, RN RN aa5 Vic Smith PA PA jr8 Dorina Capone, RN RN vg1 Corrections: (The following items were deleted from the chart) 11:07 10:45 BP 92 / 59; Pulse 71bpm; Resp 16bpm; Pulse Ox 98% RA; vg1 vg1
[2021-08-02] MEDS ORDERED: metroNIDAZOLE 500 MG TABLET ONE (12:05)
[2021-08-02] MEDS ORDERED: CIPROFLOXACIN HCL 500 MG TAB ONE (12:05)
[2021-08-02 12:25] VITALS: BP 116/63; O2SAT 98
== END 2021-08-02 12:19 ==
LOC: ER 10:03
DX: K50.018 Crohn's disease of small intestine with other complication (principal); F17.210 Nicotine dependence, cigarettes, uncomplicated
CPT/HCPCS: 36415; 74177; 80053; 83690; 85025; 99284; Q9967